=== PATIENT | female | born 2000 | race Caucasian/White ===

== ENCOUNTER 2020-02-14 12:21 | Outpatient (REF) | payer OTHER, SELFPAY ==
[2020-02-14 12:43] LABS: COVID-19 Test Negative (Negative)
== END 2020-02-14 12:22 | disposition home or self-care (01) ==
LOC: HO.LAB 12:21
PROVIDERS: PCP Nurse Practitioner Family; Visit Provider Internal Medicine
DX: Z20.828 Contact with and (suspected) exposure to other viral communicable diseases (principal)
CPT/HCPCS: 87635; C9803

== ENCOUNTER 2020-02-15 18:04 | Emergency (ER) | payer OTHER, SELFPAY ==
[2020-02-15 18:24] VITALS: BP 161/76; PULSE 100; RESP 20; TEMP 36.2; O2SAT 98; BMI 17.2
--- NOTE | 2020-02-15 18:52 | PC.NURSE ---
Pt has bed at [facility], spoke to staff. admisions number is [phone] who states pt was sent here and need insurance auth.
--- NOTE | 2020-02-15 20:11 | ED.GENADULT ---
HPI - General Adult General Chief complaint: ETOH/Substance Use Stated complaint: crisis Time Seen by Provider: 02/15/20 20:00 Source: patient Mode of arrival: ambulatory Limitations: no limitations History of Present Illness HPI narrative: Patient comes to the emergency room requesting help to be transferred to [facility]. Patient states she has been waiting for a month for a bed, she has a bed available, however due to insurance issues and prior authorization insurance request, she has not been able to get there. Patient's tests for COVID-19 was done yesterday, the result is negative. Patient denies SI or HI Related Data Allergies Allergy/AdvReac Type Severity Reaction Status Date / Time No Known Allergies Allergy Unverified 12/20/19 16:43 [No Known Allergies*] Review of Systems Review of Systems: Constitutional : No Weight loss, No Fever, No Chills, No Night Sweats, No Fatigue, No Malaise ENT/Mouth : No Hearing loss, No Ear Pain, No Nasal Congestion, No Sinus Pain, No Hoarseness, No sore throat, No Rhinorrhea, No Swallowing Difficulty Eyes: No Eye Pain, No Swelling, No Redness, No Foreign Body, No Discharge, No Vision Changes Cardiovascular : No Chest Pain, No SOB, No Dyspnea on Exertion, No Orthopnea, No Edema, No Palpitations Respiratory : No Cough, No Sputum, No Wheezing, No Smoke Exposure, No Dyspnea Gastrointestinal : No Nausea, No Vomiting, No Diarrhea, No Constipation, No abdominal Pain, No Hematochezia, No Melena Genitourinary : no irregular bleeding, No Dysuria, No Urinary Frequency, No Hematuria, No Urinary Incontinence, No Urgency, No Flank Pain, No Urinary Flow Changes, No Hesitancy Musculoskeletal : No joint pain, No Myalgias, No Joint Swelling Skin : No Skin Lesions, No rash Neuro : No Weakness, No Numbness, No Paresthesias, No Loss of Consciousness, No Dizziness, No Headache Psych : No Anxiety/Panic, No Depression, No SI/HI/AH/VH, No Social Issues, Heme/Lymph: No Bruising, No Bleeding,No Lymphadenopathy Endocrine : No Polyuria, No Polydipsia, No Temperature Intolerance [facility] Past Medical History Medical History (Updated 02/15/20 @ 21:40 by Kisha Montoya MD) Anorexia Anxiety Depression Eating disorder Social History Social History Alcohol intake: never Smoking Status: Never smoker Use of substances other than those prescribed or required for medical reasons: Yes Substance Use Type: Marijuana Substance Use Frequency: Daily Advance Directives: No Advance Directives Information Provided: Yes Physical Exam Vital Signs: Vital Signs: Last Vital Signs Temp 983 F H 02/15/20 20:12 Pulse 87 02/15/20 20:12 Resp 18 02/15/20 20:12 BP 140/75 H 02/15/20 20:12 Pulse Ox 97 02/15/20 20:12 Body Mass Index 17.2 Appearance: Alert. Oriented X3. No acute distress. Eyes: Pupils equal, round and reactive to light. ENT: Pharynx normal. Neck: Normal inspection. Neck supple. No lymph nodes noted. No crepitus CVS: Normal heart rate and rhythm. Pulses normal. Normal S1 and S2 Respiratory: No respiratory distress. Breath sounds normal. No Wheezing. No rales Abdomen: Soft and nontender. No rigidity. No distention. good BS x4 Skin: Skin warm and dry. Normal skin color. Normal skin turgor. Extremities: No lower extremity edema. No lower extremity edema. No Lacerations. No Rash Neuro: Oriented X 3. No motor deficit. No sensory deficit. Moving all extermities. No slurred speech. Course Course Course Narrative: Care team has been consulted, we will try to get the care team involved to help the transition to [facility]. The care team was consulted, they received the outpatient labs from the patient's PCP and our COVID negative test. They will call patient tomorrow at her house with a bed assignment. Discharge Plan Discharge Clinical Impression: Encounter for medical clearance for patient hold Patient Disposition: Home, Self-Care Additional Instructions: You will receive a phone call from [facility] tomorrow morning.
[2020-02-15 20:12] VITALS: BP 140/75; PULSE 87; RESP 18; TEMP 528.3; TEMP 983; O2SAT 97
--- NOTE | 2020-02-15 20:15 | MHC.CARE ---
CARE team received consult to assist with this patient in ED22H who reports she has been accepted to [facility] for eating disorder treatment. CARE team contacted [facility] [phone] at 2015 to clarify what is needed. [facility] staff reports patient was assessed earlier today by a clinician Pushpa Sparrow from their [place] [facility] office and was due to be admitted tonight. They were awaiting covid test, labs/medical clearance and insurance authorization. Due to the delay in obtaining authorization, it appears patient's mother was told it might be easier to go to the emergency room and have the team there evaluate her and get authorization, as well as completing medical clearance. CARE team explained that with patient's particular insurance it is the accepting facility that obtains the auth, and in addition an assessment would not be indicated as she was evaluated today and was already accepted to the facility. [facility] staff reports the supervisor ticket sales aJelyn Miranda is gone for the day, but that if patient is medically cleared at [facility] she can await her intake at home and does not need to remain in the ED. CARE team then updated nurse and requested labs. Presented to ED to talk to patient. Patient reports she completed labs including covid test yesterday. Denies any safety concerns including SI/HI/AVH. Patient reports she was supposed to be admitted tonight but that it is too late now. CARE team then spoke to patient's mother in the waiting room. She reports there was difficulty in obtaining authorization and the director of [facility] suggested coming to the ED. CARE team explained the above reasons why an eval would not be done, and explained conversation with [facility]. Mother reports the labs were sent to the facility already including covid test that was done at [facility]. CARE team is able to access and confirm the covid test but not the other labs from the PCP's office. CARE team updated patient and nurse on information so far and labs are on hold until further conversation with [facility]. CARE team called [facility] back at 2100 and updated on information above. Staff reviewed chart reached out to supervisor ticket sales for clarity. (They report their treatment facility is now in [place].) After consulting with supervisor ticket sales, [facility] staff reports patient can wait at home for admission appointment. CARE team faxed covid results to [facility] at [phone] with patient's permission. At 2140 updated patient, mother, and nurse on plan. No further labs needed per [facility] at this time.
--- NOTE | 2020-02-15 20:15 | PC.NURSE ---
patient a&ox3, pt here to get assistance for placement at [facility] for insurance clearance for her eating disorder, patient does not have si/hi.
--- NOTE | 2020-02-15 20:19 | PC.NURSE ---
called care team per request by dr caldwell, left a message as nobody answered the phone, will attempt to call [facility] to get ahold of them as well
--- NOTE | 2020-02-15 20:52 | PC.NURSE ---
reika from care team came to see patient, she stated to this nurse that there is an insurance auth already being worked on by the facility and that she does have a bed when auth goes through, they asked for labs for medical clearance with a covid/ekg, the patient is able to then wait at home for the auth and bed.
--- NOTE | 2020-02-15 21:02 | PC.NURSE ---
patient denies alcohol use, ciwa not applicable
--- NOTE | 2020-02-15 21:53 | PC.NURSE ---
care team has faxed all info that the facility had asked for, patient is going to discharge home and drive to facility when the bed is ready.
== END 2020-02-15 21:56 | disposition home or self-care (01) ==
PROVIDERS: Emergency Provider Emergency Medicine; PCP Nurse Practitioner Family
DX: Z04.89 Encounter for examination and observation for other specified reasons (principal); F10.10 Alcohol abuse, uncomplicated; Y90.9 Presence of alcohol in blood, level not specified
CPT/HCPCS: 99284

== ENCOUNTER 2020-04-21 07:07 | Outpatient (REF) | payer OTHER, SELFPAY | END 2020-04-21 07:08 | disposition home or self-care (01) | LOC: HO.LAB 07:07 | PROVIDERS: Visit Provider Internal Medicine | DX: Z20.822 Contact with and (suspected) exposure to COVID-19 (principal) | CPT/HCPCS: 36415; C9803; U0003 ==

== ENCOUNTER → 2022-03-05 07:11 | Outpatient (REF) | payer OTHER, SELFPAY ==
--- NOTE | 2022-03-05 07:16 | ECG_ITS ---
Test Reason : f50.00 Blood Pressure : / mmHG Vent. Rate : 070 BPM Atrial Rate : 070 BPM P-R Int : 170 ms QRS Dur : 084 ms QT Int : 412 ms P-R-T Axes : 053 093 066 degrees QTc Int : 444 ms Normal sinus rhythm Rightward axis Borderline ECG No previous ECGs available Referred By: Mireya Henao Electronically Signed By:Juan Hendricks
[2022-03-05 07:27] LABS: MANUAL DIFF FLAG NO
[2022-03-05 07:40] LABS: Basophils Absolute Auto 0.1 X10*3/uL (0.0-0.2); Basophils Percent Auto 1.1 % (0-2); Eosinophils Absolute Auto 0.2 X10*3/uL (0.0-0.4); Eosinophils Percent Auto 3.4 % (0-4); Hematocrit 39.5 % (37.0-47.0); Hemoglobin 12.8 g/dl (12.0-16.0); Imm Gran Abs Auto 0.01 X10*3/uL (0.00-0.03); Imm Gran Pct Auto 0.2 % (0.0-0.4); Lymphocytes Absolute Auto 1.4 X10*3/uL (1.2-4.9); Lymphocytes Percent Auto 30.1 % (20-40); Mean Corpuscular HGB Conc 32.4 g/dl (31.0-35.0); Mean Corpuscular Hemoglobin 27.8 pg (27.0-33.0); Mean Corpuscular Volume 85.9 fL (80.0-98.0); Mean Platelet Volume 11.4 fL (9.4-12.3); Monocytes Absolute Auto 0.6 X10*3/uL (0.1-1.2); Monocytes Percent Auto 13.8 % (2-11); Neutrophils Absolute Auto 2.4 x10*3/uL (2.0-8.3); Neutrophils Percent Auto 51.4 % (45-73); Platelet Count 200 X10*3/uL (160-400); Red Cell Distribution Width 13.3 % (11.0-16.0); White Blood Count 4.7 X10*3/uL (4.8-10.8)
[2022-03-05 08:25] LABS: Alanine Aminotransferase 6 U/L (0-31); Albumin Level 4.5 g/dL (3.5-5.0); Alkaline Phosphatase 67 U/L (39-117); Anion Gap 11 (12-20); Aspartate Amino Transferase 12 U/L (5-31); Bilirubin Total 0.8 mg/dL (0.0-1.0); Blood Urea Nitrogen 11 mg/dL (9-16); Calcium 9.8 mg/dL (8.4-10.2); Carbon Dioxide 26 mmol/L (22-29); Chloride 102 mmol/L (96-108); Estimated Glomerular Filt Rate > 60; Free T4 (Free Thyroxine) 1.13 ng/dL (0.71-1.85); Glucose Random 89 mg/dL (60-115); Potassium 3.8 mmol/L (3.3-5.1); Sodium 135 mmol/L (135-145); Thyroid Stimulating Hormone 0.66 uIU/mL (0.32-4.0); Total Protein 7.2 g/dL (6.5-8.0)
== END ==
LOC: HO.CARD 07:11
PROVIDERS: PCP Family Medicine; Visit Provider Nurse Practitioner Psychiatric/Mental Health
DX: F50.00 Anorexia nervosa, unspecified (principal)
CPT/HCPCS: 36415; 80053; 84439; 84443; 85025; 93005

== ENCOUNTER 2022-03-26 12:26 | Emergency (ER) | payer OTHER, SELFPAY ==
[2022-03-26 12:59] VITALS: BP 143/86; PULSE 66; RESP 18; TEMP 36.7; O2SAT 98; BMI 18.5
--- NOTE | 2022-03-26 13:00 | ED_ITS ---
HPI - General Adult General Chief complaint: Related Data 13:03> Stated complaint: Time Seen by Provider: Medication Instructions Recorded Source: patient <Tamara Perla MD - Last Filed: 03/26/22 17:46> Mode of arrival: release HPI narrative: shortness of breath, chest pain/palpitations or urinary symptoms. Patient also
--- NOTE | 2022-03-26 13:00 | ED.GENADULT ---
HPI - General Adult General Chief complaint: Nausea/Vomiting/Diarrhea <DANYEL Aguilar - Last Filed: 03/26/22 13:03> Stated complaint: Dehydrated <DANYEL Aguilar - Last Filed: 03/26/22 13:03> Time Seen by Provider: 03/26/22 14:40 <DANYEL Aguilar - Last Filed: 03/26/22 13:03> Source: patient <Tamara Perla MD - Last Filed: 03/26/22 17:46> Mode of arrival: ambulatory <Tamara Perla MD - Last Filed: 03/26/22 17:46> History of Present Illness HPI narrative: 21-year-old female who states nausea and vomiting since 04:00 but states that this typically happens due to her underlying eating disorder when she consumes alcohol which she did last night. She otherwise denies any fever, chills, shortness of breath, chest pain/palpitations or urinary symptoms. Patient also describes passive SI thoughts but denies any active plan or suicidal ideation. Patient states that she continues to take her medication as prescribed. <Tamara Perla MD - Last Filed: 03/26/22 17:46> Related Data Home medications: Previous Rx's Medication Instructions Recorded duloxetine 60 mg capsule,delayed 60 mg PO DAILY #14 caps 03/18/22 release olanzapine 7.5 mg tablet 7.5 mg PO BEDTIME #14 tabs 03/18/22 <DANYEL Aguilar - Last Filed: 03/26/22 13:03> Allergies/adverse reactions: Allergies Allergy/AdvReac Type Severity Reaction Status Date / Time No Known Allergies Allergy Unverified 12/20/19 16:43 [No Known Allergies*] <DANYEL Aguilar - Last Filed: 03/26/22 13:03> Review of Systems Review of Systems: Pertinent positives and negatives as stated in HPI 10 point review systems otherwise negative. <Tamara Perla MD - Last Filed: 03/26/22 17:46> PMFSH Past Medical History Source: nursing notes reviewed <Tamara Perla MD - Last Filed: 03/26/22 17:46> Medical History: Medical History Anorexia Anxiety Depression Eating disorder <DANYEL Aguilar - Last Filed: 03/26/22 13:03> Social History Social History: Social History Household Members: None Alcohol intake: never Smoked in Last 30 Days: Yes Use of substances other than those prescribed or required for medical reasons: No Substance Use Type: Marijuana Advance Directives: No Advance Directives Information Provided: No <DANYEL Aguilar - Last Filed: 03/26/22 13:03> Physical Exam ED Vital Signs: Vital Signs - 24 hr 03/26/22 12:59 03/26/22 14:59 03/26/22 16:09 Temperature 98.0 F 98.9 F Pulse Rate 66 70 68 Respiratory Rate 18 20 Blood Pressure 143/86 H 107/63 101/57 L Pulse Oximetry 98 97 96 Oxygen Delivery Method Room Air Room Air Room Air BMI result Body Mass Index 18.5 <DANYEL Aguilar - Last Filed: 03/26/22 13:03> Vital Signs - 24 hr 03/26/22 12:59 03/26/22 14:59 03/26/22 16:09 Temperature 98.0 F 98.9 F Pulse Rate 66 70 68 Respiratory Rate 18 20 Blood Pressure 143/86 H 107/63 101/57 L Pulse Oximetry 98 97 96 Oxygen Delivery Method Room Air Room Air Room Air BMI result Body Mass Index 18.5 VITAL SIGNS: Reviewed. GENERAL: Well developed, well nourished, in no acute distress. HEAD: Normocephalic/atraumatic EYES: PERRLA, EOMI EARS: Ext canals without abnormality OROPHARYNX: no oral lesions noted, posterior pharynx clear LUNGS: Normal breath sounds. No adventitious sounds or accessory muscle use. SpO2<96> CARDIOVASCULAR: Regular rate and rhythm without noted murmurs ABDOMEN: Soft, non-tender, non-distended with bowel sounds. MUSCULOSKELETAL: No tenderness, deformities, or effusions noted on gross inspection. EXTREMITIES: No cyanosis, clubbing or edema. SKIN: Inspection of the skin reveals no rashes NEUROLOGIC: Alert and oriented x 4. Strength and sensation to light touch were grossly intact x 4. <Tamara Perla MD - Last Filed: 03/26/22 17:46> Course Course Course Narrative: RME - 21 yo female with history of depression, anxiety, anorexa presents to the ER with acute onset of vomiting that started this morning at 4am. She also reports increase in suicidal ideation from a combination of the acute vomiting as well as other factors. No abd pain, diarrhea or fevers. No sick contacts. No hx cyclical vomiting. VSS on arrival. She engages in cutting behaviors at home, last was 1 week ago. No plan at this time. Will need to be medically cleared and then will need to be seen by the crisis team. <DANYEL Aguilar - Last Filed: 03/26/22 13:03> RME - 21 yo female with history of depression, anxiety, anorexa presents to the ER with acute onset of vomiting that started this morning at 4am. She also reports increase in suicidal ideation from a combination of the acute vomiting as well as other factors. No abd pain, diarrhea or fevers. No sick contacts. No hx cyclical vomiting. VSS on arrival. She engages in cutting behaviors at home, last was 1 week ago. No plan at this time. Will need to be medically cleared and then will need to be seen by the crisis team. Review of all investigations negative for acute findings, patient with reports of passive suicidal ideation and stating that she feels like she is at her baseline denies any plan and feels like she is safe for discharge to home. Patient reports that she consistently takes her medication, however though I do think that this patient is a safe discharge to home I have asked the care team to evaluate the patient as well as she is in a ?partial program?. In the meantime, patient received both Zofran and Compazine, this will be followed by Carafate and than gradual introduction of juice with saltine crackers with suspected discharge to home. <Tamara Perla MD - Last Filed: 03/26/22 17:46> Reevaluation(s) Reevaluation #1: On re-evaluation patient is feeling much better and is tolerating oral intake. Care team has evaluated the patient in feels that she has a safe discharge as she is already in partial. <Tamara Perla MD - Last Filed: 03/26/22 17:46> Time: 17:25 <Tamara Perla MD - Last Filed: 03/26/22 17:46> Medications Administered Discontinued Medications Generic Name Dose Route Start Last Admin Trade Name Freq PRN Reason Stop Dose Admin Ondansetron HCl 4 mg 03/26/22 14:58 03/26/22 15:04 Ondansetron Odt 4 Mg Tab.Rapdis TRANSLINGU 03/26/22 14:59 4 mg ONCE ONE Administration Prochlorperazine Maleate 5 mg 03/26/22 14:58 03/26/22 15:19 Prochlorperazine Maleate 5 Mg Tablet PO 03/26/22 14:59 5 mg ONCE ONE Administration Sucralfate 1 gm 03/26/22 16:42 03/26/22 17:10 Sucralfate Oral Suspension 1 Gm/10 Ml Oral.Susp PO 03/26/22 16:43 1 gm ONCE ONE Administration <DANYEL Aguilar - Last Filed: 03/26/22 13:03> Medications Administered Discontinued Medications Generic Name Dose Route Start Last Admin Trade Name Freq PRN Reason Stop Dose Admin Ondansetron HCl 4 mg 03/26/22 14:58 03/26/22 15:04 Ondansetron Odt 4 Mg Tab.Rapdis TRANSLINGU 03/26/22 14:59 4 mg ONCE ONE Administration Prochlorperazine Maleate 5 mg 03/26/22 14:58 03/26/22 15:19 Prochlorperazine Maleate 5 Mg Tablet PO 03/26/22 14:59 5 mg ONCE ONE Administration Sucralfate 1 gm 03/26/22 16:42 03/26/22 17:10 Sucralfate Oral Suspension 1 Gm/10 Ml Oral.Susp PO 03/26/22 16:43 1 gm ONCE ONE Administration <Tamara Perla MD - Last Filed: 03/26/22 17:46> Medical Decision Making Medical Decision Making MDM Narrative: 21-year-old female with history and clinical presentation suggestive of alcohol related nausea and vomiting. In addition, patient denies overt suicidal ideation with any plan and feels like she is at her baseline. <Tamara Perla MD - Last Filed: 03/26/22 17:46> Differential Diagnosis Differential Diagnoses: The differential diagnosis associated with the presentation includes <Tamara Perla MD - Last Filed: 03/26/22 17:46> , UTI, gastroenteritis <Tamara Perla MD - Last Filed: 03/26/22 17:46> Consult Healthcare Provider Management of the patient was discussed with: Educational Interpreter <Tamaar Perla MD - Last Filed: 03/26/22 17:46> Care team for screening. <Tamara Perla MD - Last Filed: 03/26/22 17:46> Lab Data MDM Lab Attestation statement: I reviewed the patient's lab results. <Tamara Perla MD - Last Filed: 03/26/22 17:46> Please see patient course for discussion regarding laboratory results. <Tamara Perla MD - Last Filed: 03/26/22 17:46> Result Diagrams: : 03/26/22 13:09 03/26/22 13:09 <DANYEL Aguilar - Last Filed: 03/26/22 13:03> Labs: Lab Results 03/26/22 03/26/22 03/26/22 Range/Units 13:09 13:09 13:09 WBC 12.6 H (4.8-10.8) X10*3/uL RBC 4.56 (4.20-5.50) X10*6/uL Hgb 12.6 (12.0-16.0) g/dl Hct 37.9 (37.0-47.0) % MCV 83.1 (80.0-98.0) fL MCH 27.6 (27.0-33.0) pg MCHC 33.2 (31.0-35.0) g/dl RDW 13.3 (11.0-16.0) % Plt Count 262 D (160-400) X10*3/uL MPV 10.7 (9.4-12.3) fL Immature Gran % (Auto) Cancelled Neut % (Auto) Cancelled Lymph % (Auto) Cancelled Linn % (Auto) Cancelled Eos % (Auto) Cancelled Baso % (Auto) Cancelled Lymph # (Auto) Cancelled Linn # (Auto) Cancelled Eos # (Auto) Cancelled Baso # (Auto) Cancelled Abs Immat Gran (auto) Cancelled Absolute Neuts (auto) Cancelled Absolute Nucleated RBC 0.000 (0.0-0.012) X10*3/uL Nucleated RBC % (auto) 0.0 (0.0-0.2) /100WBC Neutrophils % (Manual) 89 H (45-73) % Band Neutrophils % 3 (3-5) % Lymphocytes % (Manual) 5 L (20-40) % Monocytes % (Manual) 2 (2-11) % Eosinophils % (Manual) 1 (0-4) % Abs Neuts (Manual) 11.6 H (2.0-8.3) X10*3/uL Lymphocytes # (Manual) 0.6 L (1.2-4.9) X10*3/uL Monocytes # (Manual) 0.3 (0.1-1.2) X10*3/uL Eosinophils # (Manual) 0.1 (0.0-0.4) X10*3/uL Platelet Estimate NORMAL (NORMAL) Plt Morphology Comment NORMAL RBC Morphology NOTED Ovalocytes 1+ (5-14) /OIF Sodium 139 (135-145) mmol/L Potassium 4.0 (3.3-5.1) mmol/L Chloride 106 (96-108) mmol/L Carbon Dioxide 22 (22-29) mmol/L Anion Gap 15 (12-20) BUN 7 L (9-16) mg/dL Creatinine 0.75 (0.5-1.4) mg/dL Estim Creat Clear Calc 90.2 Estimated GFR > 60 Random Glucose 124 H (60-115) mg/dL Calcium 9.9 (8.4-10.2) mg/dL Magnesium 1.9 (1.6-2.6) mg/dL Total Bilirubin 0.5 (0.0-1.0) mg/dL Direct Bilirubin 0.2 (0.0-0.5) mg/dL AST 18 (5-31) U/L ALT 7 (0-31) U/L Alkaline Phosphatase 73 (39-117) U/L Total Protein 7.5 (6.5-8.0) g/dL Albumin 4.7 (3.5-5.0) g/dL Ethyl Alcohol < 10 mg/dL Influenza Type A (PCR) NEGATIVE (Negative) Influenza Type B (PCR) NEGATIVE (Negative) RSV RNA Qual (PCR) NEGATIVE (Negative) SARS-CoV-2 RNA (RT-PCR) NEGATIVE (Negative) <DANYEL Aguilar - Last Filed: 03/26/22 13:03> Lab Results 03/26/22 03/26/22 03/26/22 Range/Units 13:09 13:09 13:09 WBC 12.6 H (4.8-10.8) X10*3/uL RBC 4.56 (4.20-5.50) X10*6/uL Hgb 12.6 (12.0-16.0) g/dl Hct 37.9 (37.0-47.0) % MCV 83.1 (80.0-98.0) fL MCH 27.6 (27.0-33.0) pg MCHC 33.2 (31.0-35.0) g/dl RDW 13.3 (11.0-16.0) % Plt Count 262 D (160-400) X10*3/uL MPV 10.7 (9.4-12.3) fL Immature Gran % (Auto) Cancelled Neut % (Auto) Cancelled Lymph % (Auto) Cancelled Linn % (Auto) Cancelled Eos % (Auto) Cancelled Baso % (Auto) Cancelled Lymph # (Auto) Cancelled Linn # (Auto) Cancelled Eos # (Auto) Cancelled Baso # (Auto) Cancelled Abs Immat Gran (auto) Cancelled Absolute Neuts (auto) Cancelled Absolute Nucleated RBC 0.000 (0.0-0.012) X10*3/uL Nucleated RBC % (auto) 0.0 (0.0-0.2) /100WBC Neutrophils % (Manual) 89 H (45-73) % Band Neutrophils % 3 (3-5) % Lymphocytes % (Manual) 5 L (20-40) % Monocytes % (Manual) 2 (2-11) % Eosinophils % (Manual) 1 (0-4) % Abs Neuts (Manual) 11.6 H (2.0-8.3) X10*3/uL Lymphocytes # (Manual) 0.6 L (1.2-4.9) X10*3/uL Monocytes # (Manual) 0.3 (0.1-1.2) X10*3/uL Eosinophils # (Manual) 0.1 (0.0-0.4) X10*3/uL Platelet Estimate NORMAL (NORMAL) Plt Morphology Comment NORMAL RBC Morphology NOTED Ovalocytes 1+ (5-14) /OIF Sodium 139 (135-145) mmol/L Potassium 4.0 (3.3-5.1) mmol/L Chloride 106 (96-108) mmol/L Carbon Dioxide 22 (22-29) mmol/L Anion Gap 15 (12-20) BUN 7 L (9-16) mg/dL Creatinine 0.75 (0.5-1.4) mg/dL Estim Creat Clear Calc 90.2 Estimated GFR > 60 Random Glucose 124 H (60-115) mg/dL Calcium 9.9 (8.4-10.2) mg/dL Magnesium 1.9 (1.6-2.6) mg/dL Total Bilirubin 0.5 (0.0-1.0) mg/dL Direct Bilirubin 0.2 (0.0-0.5) mg/dL AST 18 (5-31) U/L ALT 7 (0-31) U/L Alkaline Phosphatase 73 (39-117) U/L Total Protein 7.5 (6.5-8.0) g/dL Albumin 4.7 (3.5-5.0) g/dL Ethyl Alcohol < 10 mg/dL Influenza Type A (PCR) NEGATIVE (Negative) Influenza Type B (PCR) NEGATIVE (Negative) RSV RNA Qual (PCR) NEGATIVE (Negative) SARS-CoV-2 RNA (RT-PCR) NEGATIVE (Negative) <Tamara Perla MD - Last Filed: 03/26/22 17:46> Discharge Plan Discharge Clinical Impression: Alcohol use, Nausea and vomiting <DANYEL Aguilar - Last Filed: 03/26/22 13:03> Patient Disposition: Home, Self-Care <DANYEL Aguilar - Last Filed: 03/26/22 13:03> Instructions: Acute Nausea and Vomiting (ED) <DANYEL Aguilar - Last Filed: 03/26/22 13:03> Additional Instructions: 1. Resume all home medications as prescribed. 2. Please follow-up with primary care provider as well as your therapist in next 3-4 days. Return to the ER for worsening symptoms. <DANYEL Aguilar - Last Filed: 03/26/22 13:03> Prescriptions: No Action olanzapine 7.5 mg tablet 7.5 mg PO BEDTIME Qty: 14 0RF duloxetine 60 mg capsule,delayed release(DR/EC) 60 mg PO DAILY Qty: 14 0RF <DANYEL Aguilar - Last Filed: 03/26/22 13:03> Referrals: Any Perez MD [Primary Care Provider] - <DANYEL Aguilar - Last Filed: 03/26/22 13:03>
[2022-03-26 13:20] LABS: Hematocrit 37.9 % (37.0-47.0); Hemoglobin 12.6 g/dl (12.0-16.0); Mean Corpuscular HGB Conc 33.2 g/dl (31.0-35.0); Mean Corpuscular Hemoglobin 27.6 pg (27.0-33.0); Mean Corpuscular Volume 83.1 fL (80.0-98.0); Mean Platelet Volume 10.7 fL (9.4-12.3); Platelet Count 262 X10*3/uL (160-400); Red Blood Count 4.56 X10*6/uL (4.20-5.50); Red Cell Distribution Width 13.3 % (11.0-16.0)
[2022-03-26 13:26] LABS: WBC ABN SCTR FOR CBC 1
[2022-03-26 13:44] LABS: Band Neutrophils Percent 3 % (3-5); Eosinophils Percent Manual 1 % (0-4); Lymphocytes Percent Manual 5 % (20-40); Monocytes Percent Manual 2 % (2-11); Neutrophils Percent Manual 89 % (45-73)
[2022-03-26 13:45] LABS: Ovalocytes 1+ (5-14) /OIF; Platelet Estimate NORMAL (NORMAL); Platelet Morphology Comment NORMAL; RBC Morphology NOTED
[2022-03-26 13:46] LABS: Eosinophils Absolute Manual 0.1 X10*3/uL (0.0-0.4); Lymphocytes Absolute Manual 0.6 X10*3/uL (1.2-4.9); Monocytes Absolute Manual 0.3 X10*3/uL (0.1-1.2); Neutrophils Absolute Manual 11.6 X10*3/uL (2.0-8.3); White Blood Count 12.6 X10*3/uL (4.8-10.8)
[2022-03-26 14:01] LABS: Influenza A PCR NEGATIVE (Negative); Influenza B PCR NEGATIVE (Negative); Resp Syncy Virus RNA Qual PCR NEGATIVE (Negative); SARS COV2 PCR INHOUSE NEGATIVE (Negative)
[2022-03-26 14:03] LABS: Alanine Aminotransferase 7 U/L (0-31); Albumin Level 4.7 g/dL (3.5-5.0); Alkaline Phosphatase 73 U/L (39-117); Anion Gap 15 (12-20); Aspartate Amino Transferase 18 U/L (5-31); Bilirubin Direct 0.2 mg/dL (0.0-0.5); Bilirubin Total 0.5 mg/dL (0.0-1.0); Blood Urea Nitrogen 7 mg/dL (9-16); Calcium 9.9 mg/dL (8.4-10.2); Carbon Dioxide 22 mmol/L (22-29); Chloride 106 mmol/L (96-108); Creatinine Clr Calc Pharmacy 90.2; Estimated Glomerular Filt Rate > 60; Ethanol < 10 mg/dL; Glucose Random 124 mg/dL (60-115); Magnesium 1.9 mg/dL (1.6-2.6); Sodium 139 mmol/L (135-145); Total Protein 7.5 g/dL (6.5-8.0)
[2022-03-26 14:59] VITALS: BP 107/63; PULSE 70; RESP 20; O2SAT 97
[2022-03-26] MEDS: Ondansetron ODT 4 MG TAB.RAPDIS TRANSLINGU (15:04)
[2022-03-26] MEDS: Prochlorperazine Maleate 5 MG TABLET PO (15:19)
[2022-03-26 16:09] VITALS: BP 101/57; PULSE 68; TEMP 37.2; O2SAT 96
[2022-03-26] MEDS: Sucralfate Oral Suspension 1 GM/10 ML ORAL.SUSP PO (17:10)
--- NOTE | 2022-03-26 17:11 | PC.NURSE ---
patient able to tolerate 2 packets of saltine crackers. has not vomited in ED. continues to report nausea. medicated per orders.
--- NOTE | 2022-03-26 17:28 | PC.NURSE ---
CARE team at bedside
== END 2022-03-26 18:00 | disposition home or self-care (01) ==
PROVIDERS: Physician Assistant; Emergency Provider Student in an Organized Health Care Education/Training Program; PCP Family Medicine
DX: E86.0 Dehydration (principal); R11.2 Nausea with vomiting, unspecified; F10.90 Alcohol use, unspecified, uncomplicated; Y90.0 Blood alcohol level of less than 20 mg/100 ml; Z20.822 Contact with and (suspected) exposure to COVID-19; Z79.899 Other long term (current) drug therapy
CPT/HCPCS: 0241U; 80048; 80076; 82077; 83735; 85007; 85027; 99284

== ENCOUNTER 2022-04-09 09:45 | Outpatient (RCR) | payer OTHER, SELFPAY ==
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
[2022-03-04 12:34] VITALS: BP 110/68; PULSE 68; TEMP 37.3
[2022-03-04 13:46] LABS: Amphetamine Screen Urine Not Detected (Not Detect); Barbiturates, Urine Not Detected (Not Detect); Benzodiazepines Screen Urine Not Detected (Not Detect); Cannabinoid Screen Urine POSITIVE (Not Detect); Cocaine Screen Urine Not Detected (Not Detect); Fentanyl, urine Not Detected (Not Detect); Opiate Screen Urine Not Detected (Not Detect); Phencyclidine Screen Urine Not Detected (Not Detect)
--- NOTE | 2022-03-04 14:50 | HO.PHPIOP ---
Case opened in treatment team.
[2022-03-04 15:33] VITALS: BMI 19.5
--- NOTE | 2022-03-08 15:57 | HO.PHPIOP ---
I met with pt to discuss aftercare, schedule, and reviewed treatment plan.
--- NOTE | 2022-03-10 13:44 | P.PNPSP_ITS ---
Subjective Subjective Date of Service: 03/10/22 Reason For Visit: depression,anxiety Medical Problems Affecting Mental Status: No Interim History: Describes mood as 'not so great . Increased depression, urges to self harm. Passive SI, no intent/plan, says feels safe. Struggling to eat, not following anorexia meal plan. Continues using cannabis frequently. Started the olanzapine and duloxetine Tuesday evening. Medication Compliance: Intermittent Side effects from medications: No Attending Groups: Yes Review of Systems Acute medical concerns: No Medical Review of Systems: unchanged Review of Systems Review of Systems Yes all other systems are reviewed and are negative Constitutional: Reports no additional constitutional complaints Mental Status Exam Mental Status Exam Narrative: NAD Patient Appearance: Well Grooomed and Appropriate Patient Orientation: Person, Place and Situation Level of Consciousness: Appropriate and Alert Patient Behavior: Appropriate, Cooperative and Good Eye Contact Mood Description: Depressed Affect Description: Depressed Patient Cognition Impaired: No Ability to Follow Directions: Excellent Speech Pattern: Clear Memory Description: Intact Hallucinations: None Delusions: Not Present Thought Process: Intact Thought Content: positive for Obsessional Thoughts (urges to self harm, SIB) and positive for Suicidal Ideation (Passive, no intent or plan.) Depressive Symptoms: Increased Anxiety, Difficulty Sleeping, Changes in Appetite (decreased), Crying Spells, Loss of Int. in Activity, Hopelessness, Isolating- Friends/Family, Unhappiness, Increased Fatigue, Thoughts of /Suicide, Low Self Esteem, Loss of Energy and Difficulty Concentrating Judgement: Fair Diagnostics Vital Signs (24Hr): BMI result Body Mass Index 19.5 Assessment & Plan Assessment & Plan (1) Major depressive disorder, recurrent severe without psychotic features: Status: Acute Code(s): F33.2 - Major depressive disorder, recurrent severe without psychotic features Assessment and Plan: Describes mood as 'not so great . Ate lunch today in her car, watching TV on her phone. States that she has been experiencing increased symptoms of depression. Increased depression, urges to self harm. Continues with depressive symptoms, anhedonia, feeling hopeless helpless, poor concentration, difficulty with sleep, struggling. Reviewed recent lab work and EKG results, no concerns. Passive SI, no intent/plan, says feels safe. Reviewed safety plan with patient. Struggling to eat, not following anorexia meal plan. Discussed possibility of calling [facility] if symptoms of anorexia continue to worsen. She was in agreement with this plan. Continues using cannabis frequently. Has not lowered amount. Started the olanzapine and duloxetine Tuesday evening. Has not yet noticed affect. Medication education provided, discussed increasing olanzapine at this time, and duloxetine after she has completed 7 day course of lower dose. She was in agreement with this plan. (2) Anorexia nervosa: Status: Acute Code(s): F50.00 - Anorexia nervosa, unspecified (3) Generalized anxiety disorder: Status: Acute Code(s): F41.1 - Generalized anxiety disorder (4) Cannabis abuse: Status: Acute Code(s): F12.10 - Cannabis abuse, uncomplicated Plan 1. Continue with current [facility] plan of care. 2. Increase olanzapine to 5 mg at bedtime, start today. 3. Harm reduction discussion regarding cannabis. 4. Increase duloxetine to 60 mg daily, after completion of 7 days at 30 mg. 5. Follow-up as per protocol. Patient educated on: diagnosis, medication risk/benefits, substance abuse and therapeutic strategies Informed Consent: understands Reason for contiued partial hosp. stay Substantial Risk for: harm to self, inability to function, rapid decompensation and med/psych decompensation Certification I certify that partial hospital treatment is medically necessary due to the symptoms and problems resulting from the patient's mental illness and the failure to treat the patient at the partial hospital level of care would likely result in the patient requiring inpatient psychiatric care which could not be prevented at a less intensive level of care. I spent minutes with the patient and/or on the patient floor today, greater than?50% of which was spent counseling/coordinating care. Discharge Plan Discharge Attending provider: Chetan Hsieh Medications: New olanzapine 5 mg tablet 5 mg PO BEDTIME Qty: 7 0RF duloxetine 60 mg capsule,delayed release(DR/EC) 60 mg PO DAILY Qty: 7 0RF Rx Instructions: After completion of duloxetine 30mg for 7 days, start duloxetine 60mg daily
--- NOTE | 2022-03-18 12:48 | HO.PHPPROGNO ---
Subjective Subjective Date of Service: 03/18/22 Reason For Visit: depression,anxiety Medical Problems Affecting Mental Status: No Interim History: Reports that she was doing better regarding depression, anxiety. States that recently symptoms have worsened again. Reports increase in intrusive thoughts, passive SI. No intent or plan. Trying to eat every 2 hours. Trying to eat protein, carbs for energy. Continues to struggle with both depression and eating disorder. Medication Compliance: Yes Side effects from medications: No Attending Groups: Yes Review of Systems Acute medical concerns: No Medical Review of Systems: unchanged Review of Systems Review of Systems Yes all other systems are reviewed and are negative Constitutional: Reports no additional constitutional complaints Mental Status Exam Mental Status Exam Narrative: NAD Patient Appearance: Well Grooomed and Appropriate Patient Orientation: Person, Place, Time and Situation Level of Consciousness: Appropriate and Alert Patient Behavior: Appropriate, Cooperative and Good Eye Contact Mood Description: Depressed Affect Description: Depressed Patient Cognition Impaired: No Ability to Follow Directions: Excellent Speech Pattern: Clear, Appropriate and Spontaneous Speech Memory Description: Intact Hallucinations: None Delusions: Not Present Thought Process: Intact Thought Content: positive for Obsessional Thoughts (urges to self harm, SIB) and positive for Suicidal Ideation (Passive, no intent or plan.) Depressive Symptoms: Increased Anxiety, Difficulty Sleeping, Changes in Appetite (decreased), Crying Spells, Loss of Int. in Activity, Hopelessness, Isolating-Friends/Family, Unhappiness, Increased Fatigue, Thoughts of /Suicide, Low Self Esteem, Loss of Energy and Difficulty Concentrating Judgement: Fair Diagnostics Vital Signs (24Hr): BMI result Body Mass Index 19.5 Assessment & Plan Assessment & Plan (1) Major depressive disorder, recurrent severe without psychotic features: Status: Acute Code(s): F33.2 - Major depressive disorder, recurrent severe without psychotic features Assessment and Plan: Reports that she was doing better regarding depression, anxiety. States that recently symptoms have worsened again. Reports that thought of returning to work on busy unit is causing distress, feeling hopeless helpless at times. Patient has short-term disability paperwork that needs updating. Reports increase in intrusive thoughts, passive SI. No intent or plan. Trying to eat every 2 hours. Trying to eat protein, carbs for energy. Eating only small amounts. Describes taking piece of toast with peanut butter for the morning, several bites of a month in later in the morning. Continues to struggle with both depression and eating disorder. Feels as if she has gone backwards rather than improving. We discussed the intrusive thoughts, increase of olanzapine to 7.5 mg. She is in agreement with this plan. (2) Generalized anxiety disorder: Status: Acute Code(s): F41.1 - Generalized anxiety disorder (3) Anorexia nervosa: Status: Acute Code(s): F50.00 - Anorexia nervosa, unspecified Plan 1. Increase olanzapine to 7.5 mg daily. Prescription for 14 days sent to pharmacy. 2. Continue duloxetine at 60 mg daily. 3. Continue with current [facility] plan of care. 4. Follow-up as per protocol. 5. Short-term disability paperwork completed. Reason for contiued partial hosp. stay Substantial Risk for: harm to self, inability to function and rapid decompensation Certification I certify that partial hospital treatment is medically necessary due to the symptoms and problems resulting from the patient's mental illness and the failure to treat the patient at the partial hospital level of care would likely result in the patient requiring inpatient psychiatric care which could not be prevented at a less intensive level of care. Total time managing care of this patient today ___30_ minutes. Discharge Plan Discharge Attending provider: Chetan Hsieh Medications: New duloxetine 60 mg capsule,delayed release(DR/EC) 60 mg PO DAILY Qty: 7 0RF Rx Instructions: After completion of duloxetine 30mg for 7 days, start duloxetine 60mg daily olanzapine 7.5 mg tablet 7.5 mg PO BEDTIME Qty: 14 0RF
--- NOTE | 2022-03-30 13:28 | HO.PHPPROGNO ---
Subjective Subjective Date of Service: 03/30/22 Reason For Visit: depression,anxiety Medical Problems Affecting Mental Status: No Interim History: Continues with depressed mood an affect. Reports wrote suicide letters and videos over weekend. Reports self-injury behavior over weekend, ?I cut myself with a razor at my parents house ?. Despite having plan, reports that she has no intent at this time. Continues with disordered eating, limited intake. Medication Compliance: Yes Side effects from medications: No Attending Groups: Yes Review of Systems Acute medical concerns: No Medical Review of Systems: unchanged Review of Systems Review of Systems Yes all other systems are reviewed and are negative Constitutional: Reports no additional constitutional complaints Mental Status Exam Mental Status Exam Narrative: NAD Patient Appearance: Well Grooomed and Appropriate Patient Orientation: Person, Place, Time and Situation Level of Consciousness: Appropriate and Alert Patient Behavior: Appropriate, Cooperative and Good Eye Contact Mood Description: Depressed Affect Description: Depressed and Flat Patient Cognition Impaired: No Ability to Follow Directions: Good Speech Pattern: Clear, Appropriate and Spontaneous Speech Memory Description: Intact Hallucinations: None Delusions: Not Present Thought Process: Intact Thought Content: positive for Obsessional Thoughts (urges to self harm, SIB) and positive for Suicidal Ideation (has plan, states no intent at this time) Depressive Symptoms: Increased Anxiety, Difficulty Sleeping, Changes in Appetite (decreased), Crying Spells, Loss of Int. in Activity, Hopelessness, Isolating-Friends/Family, Unhappiness, Increased Fatigue, Thoughts of /Suicide, Low Self Esteem, Loss of Energy and Difficulty Concentrating Judgement: Fair Diagnostics Vital Signs (24Hr): BMI result Body Mass Index 19.5 Assessment & Plan Assessment & Plan (1) Major depressive disorder, recurrent severe without psychotic features: Status: Acute Code(s): F33.2 - Major depressive disorder, recurrent severe without psychotic features Assessment and Plan: Patient continues to struggle with depression, anorexia. Wrote out suicide notes and made videos over weekend. Self harmed with razor. Reports has a plan for suicide completion, but no intent today. Reviewed safety plan, phone number for crisis provided to patient. Patient has been meeting with her therapist to times weekly. Finding groups here helpful, however continues to struggle. Does not feel ready for discharge. Discussed obtaining crisis eval for possible inpatient level of care. She would prefer medication changes if possible rather than going inpatient at this time. (2) Anorexia nervosa: Status: Acute Code(s): F50.00 - Anorexia nervosa, unspecified (3) Generalized anxiety disorder: Status: Acute Code(s): F41.1 - Generalized anxiety disorder (4) Cannabis abuse: Status: Acute Code(s): F12.10 - Cannabis abuse, uncomplicated Assessment and Plan: Patient continues to struggle with substance use. Plan 1. Continue with current [facility] plan of care. 2. Follow-up as per protocol. 3. Consider raising olanzapine and duloxetine doses. Patient educated on: diagnosis, medication risk/benefits, substance abuse and therapeutic strategies Informed Consent: understands Reason for contiued partial hosp. stay Substantial Risk for: harm to self, inability to function, rapid decompensation and med/psych decompensation Certification I certify that partial hospital treatment is medically necessary due to the symptoms and problems resulting from the patient's mental illness and the failure to treat the patient at the partial hospital level of care would likely result in the patient requiring inpatient psychiatric care which could not be prevented at a less intensive level of care. Total time managing care of this patient today ___25_ minutes. Discharge Plan Discharge Attending provider: Chetan Hsieh Medications: New olanzapine 7.5 mg tablet 7.5 mg PO BEDTIME Qty: 14 0RF duloxetine 60 mg capsule,delayed release(DR/EC) 60 mg PO DAILY Qty: 14 0RF No Action ondansetron 4 mg tablet,disintegrating 4 mg PO Q8H PRN (Reason: nausea and vomiting) Qty: 7 0RF Stand Alone Forms: Patient Portal Discharge page Patient Education: Depression (DC), Cannabis Abuse (DC), Anxiety (ED)
--- NOTE | 2022-04-08 11:28 | HO.PHPPROGNO ---
Subjective Subjective Date of Service: 04/08/22 Reason For Visit: depression,anxiety Medical Problems Affecting Mental Status: No Interim History: Continues with depressed mood, although some improvement. Tolerating increased olanzapine well. Did not take the increased duloxetine, state at 60 mg. No active SI, no safety concerns. Continues with cannabis use, although decreased. Has intake for [facility] tomorrow, would like to return to residential tx for eating disorder. Resigned from work position, accepted a position in a role with less stress. Feels stable, ready for discharge. Medication Compliance: Intermittent (Did not take increased duloxetine dose. ) Side effects from medications: No Attending Groups: Yes Review of Systems Acute medical concerns: No Medical Review of Systems: unchanged Review of Systems Review of Systems Yes all other systems are reviewed and are negative Constitutional: Reports no additional constitutional complaints Mental Status Exam Mental Status Exam Narrative: NAD Patient Appearance: Well Grooomed and Appropriate Patient Orientation: Person, Place, Time and Situation Level of Consciousness: Appropriate and Alert Patient Behavior: Appropriate, Cooperative and Good Eye Contact Mood Description: Appropriate and Depressed Affect Description: Appropriate and Depressed Patient Cognition Impaired: No Ability to Follow Directions: Good Speech Pattern: Clear and Spontaneous Speech Memory Description: Intact Hallucinations: None Delusions: Not Present Thought Process: Intact Depressive Symptoms: Diff. Making Decisions, Loss of Int. in Activity, Low Self Esteem and Difficulty Concentrating Judgement: Good Diagnostics Vital Signs (24Hr): BMI result Body Mass Index 19.5 Assessment & Plan Assessment & Plan (1) Major depressive disorder, recurrent severe without psychotic features: Status: Acute Code(s): F33.2 - Major depressive disorder, recurrent severe without psychotic features Assessment and Plan: Continues with depressed mood, although reports some improvement. Reports did not pecan picker increased dose duloxetine, due to financial concerns. Has resigned from work, and new position does not start for 5 to 6 weeks. New position is much less stressful. Continues with disordered eating, has intake scheduled for [facility]. Wants to resume residential treatment with them, had been in treatment with them in August 2021. No SI, no safety concerns. Reports feels stable for discharge from [facility] at this time. (2) Cannabis abuse: Status: Acute Code(s): F12.10 - Cannabis abuse, uncomplicated Assessment and Plan: continues use of cannabis, although reports using less amount, less frequency. Hopes to address this further in outpatient setting. (3) Generalized anxiety disorder: Status: Acute Code(s): F41.1 - Generalized anxiety disorder (4) Anorexia nervosa: Status: Acute Code(s): F50.00 - Anorexia nervosa, unspecified Plan 1. Appears stable for discharge from [facility] at this time. 2. Patient to continue with outpatient providers, as well as [facility], going forward. Patient educated on: diagnosis, medication risk/benefits, substance abuse and therapeutic strategies Informed Consent: understands Reason for contiued partial hosp. stay Substantial Risk for: stable for discharge Certification I certify that partial hospital treatment is medically necessary due to the symptoms and problems resulting from the patient's mental illness and the failure to treat the patient at the partial hospital level of care would likely result in the patient requiring inpatient psychiatric care which could not be prevented at a less intensive level of care. Total time managing care of this patient today _20___ minutes. Discharge Plan Discharge Attending provider: Chetan Hsieh Medications: New duloxetine 60 mg capsule,delayed release(DR/EC) 60 mg PO DAILY Qty: 30 0RF duloxetine 30 mg capsule,delayed release(DR/EC) 30 mg PO DAILY Qty: 30 0RF Rx Instructions: Take with duloxetine 60mg daily, for total daily dose 90mg daily olanzapine 10 mg tablet 10 mg PO BEDTIME Qty: 30 0RF No Action ondansetron 4 mg tablet,disintegrating 4 mg PO Q8H PRN (Reason: nausea and vomiting) Qty: 7 0RF Stand Alone Forms: Patient Portal Discharge page Patient Education: Depression (DC), Cannabis Abuse (DC), Anxiety (ED)
== END 2022-04-09 23:59 | disposition home or self-care (01) ==
LOC: HO.PHPA 09:45
PROVIDERS: Nurse Practitioner Psychiatric/Mental Health; Visit Provider Psychiatry & Neurology Psychiatry
DX: F33.2 Major depressive disorder, recurrent severe without psychotic features (principal); F41.1 Generalized anxiety disorder; F50.00 Anorexia nervosa, unspecified; Z79.899 Other long term (current) drug therapy
CPT/HCPCS: 80307; 90791; 90853

== ENCOUNTER → 2023-03-08 09:00 | Outpatient (BNV) | payer OTHER, SELFPAY | PROVIDERS: Visit Provider Psychiatry & Neurology Psychiatry | DX: F33.2 Major depressive disorder, recurrent severe without psychotic features (principal); F43.10 Post-traumatic stress disorder, unspecified; F42.8 Other obsessive-compulsive disorder; F50.9 Eating disorder, unspecified; F12.10 Cannabis abuse, uncomplicated | CPT/HCPCS: 90792; 99213; 99499 ==

== ENCOUNTER 2023-03-21 09:30 | Outpatient (RCR) | payer OTHER, SELFPAY ==
[2023-03-02 11:43] VITALS: BP 120/84; PULSE 62; TEMP 37.4
[2023-03-02 11:45] VITALS: BMI 20.2
--- NOTE | 2023-03-02 12:38 | PC.ADMIT ---
Clarissa is a 22 year old female who was referred to PHP by her therapist d/t increased sxs of depression with passive SI, reports plan however denied any intention of killing herself as her family, three best friends, and dog are her protective factors. Denied any history of SA. She has a history of attending PHP around the same time last year February 2022. She is also struggling with increased anxiety. She reports she struggles with seasonal changes and the holidays which are focused on food and eating which is challenging with her eating disorder. She is currently working second shift 3-11 at [employer]. Patient is alert and oriented x4. Calm and cooperative. Presented with anxious mood and affect. She stated she took her prescribed prn Klonopin this morning d/t anxiety with good effect. She also reports she has not been taking her medication as prescribed for the past 2 weeks d/t nausea and at times vomiting thus can not hold down the medication. 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 Medications reconciled with patient and patient's pharmacy.
--- NOTE | 2023-03-02 13:03 | PC.NURSE ---
Clarissa called out on 03/01/23 leaving a message stating she was too tired to come to [facility] as she worked 3-11 last night and will be here tomorrow 03/02/23.
--- NOTE | 2023-03-02 14:32 | PC.NURSE ---
Patient stated that she has to do a 1/2 day at [facility] tomorrow as she has no one to watch her dog and has a therapy appointment.
--- NOTE | 2023-03-03 18:48 | HO.PHP ---
[facility] staff member followed up with Clarissa to confirm that she will be in attendance to program. PHP staff member left a VM and is awaiting a call back.
--- NOTE | 2023-03-03 18:51 | HO.PHP ---
Clients case has been opened and reviewed in treatment team.
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
--- NOTE | 2023-03-08 19:38 | HO.PHPPROGNO ---
Subjective Subjective Date of Service: 03/08/23 Reason For Visit: MDD Interim History: Patient seen for follow-up today. No acute concerns or issues. She reports she is doing okay. She reports her mood is about the same, no change. She endorses some passive SI, but denies any plan or intent. I asked if she has moved up to one tablet now of the Latuda, however she says she has not had a chance to orange picker the medication, but is aware it's ready and will pick it up today and start. SHe is aware to take the medication with evening meal for optimal absorption. She did stop taking the olanzapine since we last met. She is now day 5 off of olanzapine without having started on the Latuda. I share my concern that her mood may worsen before it gets better with starting the Latuda. She says she understands and will prioritize starting today. She had also been off of the fluoxetine and we agreed to she would start back at 20 mg qd. She reports sleeping variable, appetite fair, eating regularly at least 2 meals. Energy stable. She continues with regular marijuana use. She last used over the weekend. Medication Compliance: No (as noted above) Attending Groups: Yes Review of Systems Acute medical concerns: No Mental Status Exam Mental Status Exam Narrative: Alert, oriented, in no acute distress. Appropriately dressed. Hygiene, grooming intact. Normal gait, no tics/tremors/dyskinesia, no psychomotor agitation or neurovegetative retardation. Calm, cooperative, forthcoming. Maintains appropriate eye contact. Mood is depressed, anxious. Affect subdued, mod range, reactive,moments of brightening, mood congruent.? Speech is normal, regular rate, rhythm, prosody. No latency or pressured speech. Thought process linear, coherent. Thought content relevant to stressors, no paranoid or delusional content elicited, some future-orientation. Denies SI or HI on inquiry. No evidence of psychosis. Cognition grossly intact. Sensorium clear. Insight fair/good. Judgment intact. Diagnostics Vital Signs (24Hr): BMI result Body Mass Index 20.2 Assessment & Plan Assessment & Plan (1) Major depressive disorder, recurrent severe without psychotic features: Status: Acute Code(s): F33.2 - Major depressive disorder, recurrent severe without psychotic features (2) Complex posttraumatic stress disorder: Status: Acute Code(s): F43.10 - Post-traumatic stress disorder, unspecified (3) Obsessive neurosis: Status: Acute Code(s): F42.8 - Other obsessive-compulsive disorder (4) Eating disorder: Qualifiers: Eating disorder type: unspecified eating disorder Qualified Code(s): F50.9 - Eating disorder, unspecified Status: Acute Code(s): F50.9 - Eating disorder, unspecified Plan urged patient to orange picker medication (ordered 03/03) Latuda 20 mg tab (start 1/2 tablet qd x 4 days then increase to 1 tablet qd) will titrate as tolerated if further delay, she should start back on olanzapine in the interim continue fluoxetine 20 mg qd continue to monitor Patient educated on: diagnosis and medication risk/benefits Informed Consent: understands Reason for contiued partial hosp. stay Substantial Risk for: harm to self Certification I certify that partial hospital treatment is medically necessary due to the symptoms and problems resulting from the patient's mental illness and the failure to treat the patient at the partial hospital level of care would likely result in the patient requiring inpatient psychiatric care which could not be prevented at a less intensive level of care. Total time managing care of this patient today __30__ minutes. Discharge Plan Discharge Attending provider: Amber Benjamin Medications: New lurasidone 20 mg tablet 20 mg PO QPM Qty: 14 0RF Rx Instructions: must administer with food (at least 350 calories) Continued ondansetron 4 mg tablet,disintegrating 4 mg PO Q8H PRN (Reason: nausea and vomiting) Qty: 7 0RF Rx Instructions: Waiting for p/u at pharmacy. clonazepam 0.5 mg tablet 0.5 mg PO TID PRN (Reason: Anxiety) Rx Instructions: Last filled 04/21/22 #90. Patient stated she uses sparingly. norethindrone ac-eth estradiol [ (21)] 1.5-30 mg-mcg tablet 1 tab PO DAILY Changed fluoxetine 20 mg tablet 20 mg PO DAILY Qty: 14 0RF Discontinued olanzapine 10 mg tablet 10 mg PO BEDTIME Qty: 30 0RF Patient Comments: Has not taken in 2 weeks d/t N/V. Stand Alone Forms: Patient Portal Discharge page
--- NOTE | 2023-03-15 10:37 | HO.PHPPROGNO ---
Subjective Subjective Date of Service: 03/15/23 Reason For Visit: MDD Interim History: Patient seen for follow-up. Continues on lurasidone 20 mg qPM and fluoxetine 20 mg qd. Has been compliant with medications, denies any side effects. She reports not feeling any better. Mood is still depressed with passive SI most everyday, last night though she admits had active suicidal ideation and thought of ways of ending her life. She contemplated taking all my medications at once . She lives alone, so did not talk to anyone about this plan. She ultimately decided to smoke weed and go to sleep. Upon inquiry she admits that she has stockpiled clonazepam for months as she only occasionally uses them for anxiety and has been able to maintain about 2 full bottles worth. (Per [facility] she had a #90 script filled in 04/2022). Clarissa was agreeable with calling her mother so mom could be involved in our discussion about safety planning. Mom was agreeable to holding on to her medications bottles and Clarissa will hold on to a couple tablets (#4) of clonazepam to take as needed for anxiety. Currently Clarissa endorses passive SI, however more intrusive thoughts of suicide often come and go throughout the day. She is agreeable to bumping up the dose of her medications, and she has enough medication currently to do so without running out for the next couple of days. Medication Compliance: Yes Side effects from medications: No Attending Groups: Yes Mental Status Exam Mental Status Exam Narrative: Alert, oriented, in no acute distress. Casually dressed. Groomed. Calm, cooperative, forthcoming. Maintains appropriate eye contact. Mood depressed. Affect constricted.? Speech is normal, regular rate, rhythm, prosody. No latency or pressured speech. Thought process linear, coherent. Thought content relevant to stressors, endorses SI with plan, denies current intention. Denies HI on inquiry. No paranoid or delusional content elicited. No evidence of psychosis. Cognition grossly intact. Sensorium clear. Insight fair. Judgment fair. Diagnostics Vital Signs (24Hr): BMI result Body Mass Index 20.2 Assessment & Plan Assessment & Plan (1) Major depressive disorder, recurrent severe without psychotic features: Status: Acute Code(s): F33.2 - Major depressive disorder, recurrent severe without psychotic features (2) Complex posttraumatic stress disorder: Status: Acute Code(s): F43.10 - Post-traumatic stress disorder, unspecified (3) Obsessive neurosis: Status: Acute Code(s): F42.8 - Other obsessive-compulsive disorder (4) Eating disorder: Qualifiers: Eating disorder type: unspecified eating disorder Qualified Code(s): F50.9 - Eating disorder, unspecified Status: Acute Code(s): F50.9 - Eating disorder, unspecified (5) Cannabis abuse: Status: Acute Code(s): F12.10 - Cannabis abuse, uncomplicated Plan increase Latuda to 40 mg qd increase fluoxetine to 40 mg qAM nicotine patch continue to closely monitor Patient educated on: diagnosis, medication risk/benefits and substance abuse Informed Consent: understands Reason for contiued partial hosp. stay Substantial Risk for: harm to self, rapid decompensation and med/psych decompensation Certification I certify that partial hospital treatment is medically necessary due to the symptoms and problems resulting from the patient's mental illness and the failure to treat the patient at the partial hospital level of care would likely result in the patient requiring inpatient psychiatric care which could not be prevented at a less intensive level of care. Total time managing care of this patient today __30__ minutes. Discharge Plan Discharge Attending provider: Amber Benjamin Medications: New lurasidone 20 mg tablet 20 mg PO QPM Qty: 14 0RF Rx Instructions: must administer with food (at least 350 calories) Continued ondansetron 4 mg tablet,disintegrating 4 mg PO Q8H PRN (Reason: nausea and vomiting) Qty: 7 0RF Rx Instructions: Waiting for p/u at pharmacy. clonazepam 0.5 mg tablet 0.5 mg PO TID PRN (Reason: Anxiety) Rx Instructions: Last filled 04/21/22 #90. Patient stated she uses sparingly. norethindrone ac-eth estradiol [ (21)] 1.5-30 mg-mcg tablet 1 tab PO DAILY Changed fluoxetine 20 mg tablet 20 mg PO DAILY Qty: 14 0RF Discontinued olanzapine 10 mg tablet 10 mg PO BEDTIME Qty: 30 0RF Patient Comments: Has not taken in 2 weeks d/t N/V. Stand Alone Forms: Patient Portal Discharge page Patient Education: Depression (DC)
--- NOTE | 2023-03-17 16:02 | HO.PHP ---
[facility] staff member followed up with Clarissa after the third group since she did not disclose if she has a plan. [facility] staff assessed if she has a plan. Clarissa disclosed that is the same plan she has always had. [facility] staff expressed that she knows that Dr. Benjamin contracted for safety with her mother and her last week around removing the medication that she is stock piling and explored if her mother has removed the medication. Clarissa disclosed not at this time. [facility] staff member asked if there is a plan for her mother to pick the medication up. Clarissa reported probably tomorrow. Clarissa reiterated that she has no intent to act on her plan and is safe. [facility] staff member was receptive.
--- NOTE | 2023-03-18 10:39 | HO.PHP ---
[facility] staff member followed up with Clarissa due to her leaving program. Clarissa informed the clinician that she is having stomach pains, in which she thought it was her appendix last night or gas. Clarissa menitoned last night she took medication for gas but is still having pains and is going to go to Urgent Care since she has to work tonight. [facility] staff member was receptive and explored SI,plan or intent. Clarissa continues to report SI with a plan and without intent. [facility] staff assessed if she was able to speak with her mother around picking up the medication so she has no means to her plan. Clarissa noted that her mother will be coming over today to pick it up. [facility] staff member was receptive. Clarissa noted she is safe and will be here on Tuesday.
--- NOTE | 2023-03-18 16:35 | PM.EVENT ---
Event Note Date of Service: 03/18/23 Event Note: Patient was scheduled for follow up with this provider today however she left unexpectedly after the first group this AM. PHP staff will be giving her a call to check in. Time Spent With Patient Time: Total time managing care of this patient today ____ minutes.
--- NOTE | 2023-03-21 15:01 | HO.PHP ---
Pt completed her PHQ-9 upon discharge meeting. Pt's score decreased slightly from 19 to 15, but still scored in the 'moderate to severe' range for depression so pt assessed to determine safety and if she would consider staying longer at [facility]. Pt reported continued SI without a plan, identified her SI as long-term and chronic struggle, identified recent SI as reduced from daily to several days a week, and reduced from 'SI with a plan most days' to 'SI without a plan', an improvement over past 2 weeks. Pt reported she continued to feel 'the same symptoms' of depression that she had when she began at [facility] on 03/02 particularly loneliness, apathy, feeling down and unmotivated, with a slight decrease in frequency and an increase in activity and increase in tryig to use coping skills e.g. outdoor walks, more use of grounding techniques, working on maintaining a daily routine. Pt also reported an increase in use of her supports over past 2 weeks, e.g has included her mother in her safety plan to help pt remain safe and store meds, spending less time alone, increased plans with friends to weekly. Stated she did not feel staying at [facility] longer would help with her depression symptoms so would prefer to discharge today, stating she will reenroll at [facility] or go to the emergency room or call crisis if she felt the severity of her symptoms increasing. Pt reported to mortgage underwriter that she discussed with DR. Benjamin additional medications she could start if she did agree to stay at [facility] longer, pt stated she may be open to additional medications but stated she would prefer to start the medications with her outpatient provider. Pt and mortgage underwriter together called her med provider, and made an appt for at 10:30 am with Vannesa BASHIR. Pt reported as safe to discharge. Pt has a therapy appt scheduled for tomorrow at 11 am with Anitha Turk, .
--- NOTE | 2023-03-21 20:59 | P.PNPSP_ITS ---
Subjective Subjective Date of Service: 03/21/23 Reason For Visit: MDD Interim History: Continues with depressed mood, although reports modest improvement, with not crying all the time and decrease in passive SI, is less an issue now that her mother removed her Klonopin bottles from her apartment on Tuesday. She reports the full plan had been to overdose on her medication and then cut her wrists, noting that she would not be capable of cutting her own wrists deep enough. She also notes that she did not want to share the full plan because it was her back-up option, but now she feels it is no longer an option. Passive SI last week was at a 5 out 10 in intensity, and now is a little better, at a 3 out of 10. She continues to hold onto her other medications and 7 tablets of Klonopin. She has maintained fluoxetine at 30 mg qd, and Latuda at 40 mg qd with food. She was encouraged to take meds with an adequate meal in order to optimize bioavailability of the Latuda. We discuss starting lithium as augmentation for depression and target chronic SI, however patient is ambivalent about staying any longer at the program; supposes she could benefit from continued structure in her day, however she doesn't feel she will gain much more for staying any longer. I kind of feel like this hasn't helped much . On a positive note, her mother submitted her application for ED residential treatment program in [place]. She is hoping to hear from them soon. In the meantime after she will be taking a leave from work. She feels she has already called out twice for mental health reasons from work due to conflicts with [facility]. She has never been to respite, she has not been to a DBT program, although her therapist engages in a mix of therapeutic strategies including CBT, DBT, psychodynamica psychotherapy. Presently she endorses ongoing depressed mood, she is well groomed and dressed. She has events and plan coming up that she is eager about . SHe endorse thoughts of not wanting to be here but no active SI, no intention or plan. Mom is in regular contact with Clarissa, we spoke last week, she has not voiced any safety concerns. Patient reports feeling stable for discharge from [facility] at this time. Mental Status Exam Mental Status Exam Narrative: Alert, oriented, in no acute distress. Casually dressed. Well-groomed. Calm, cooperative, forthcoming. Maintains appropriate eye contact. Mood depressed. Affect constricted.? Speech is normal, regular rate, rhythm, prosody. No latency or pressured speech. Thought process linear, coherent. Thought content relevant to stressors, endorses passive SI without intention, urge or plan. Denies any thoughts of harming herself or others. Denies HI on inquiry. No paranoid or delusional content elicited. No evidence of psychosis. Cognition grossly intact. Sensorium clear. Insight fair. Judgment fair. Diagnostics Vital Signs (24Hr): BMI result Body Mass Index 20.2 Assessment & Plan Assessment & Plan (1) Major depressive disorder, recurrent severe without psychotic features: Status: Acute Code(s): F33.2 - Major depressive disorder, recurrent severe without psychotic features Assessment and Plan: r/o Dysthmic Disorder (2) Complex posttraumatic stress disorder: Status: Acute Code(s): F43.10 - Post-traumatic stress disorder, unspecified (3) Obsessive neurosis: Status: Acute Code(s): F42.8 - Other obsessive-compulsive disorder (4) Eating disorder: Qualifiers: Eating disorder type: unspecified eating disorder Qualified Code(s): F50.9 - Eating disorder, unspecified Status: Acute Code(s): F50.9 - Eating disorder, unspecified (5) Cannabis abuse: Status: Acute Code(s): F12.10 - Cannabis abuse, uncomplicated Assessment and Plan: Discharge Diagnosis: Dysthymic Disorder vs MDD, recurrent, severe without psych features cPTSD vs Unstable personality development/ Borderline Personality Disorder ED vs Anorexia Nervosa OC spectrum Cannabis Abuse Plan Discharge from [facility] continue Latuda 40 mg qd in evening with meal continue fluoxetine at 30 mg qAM will defer further medication management to outpatient providers Patient educated on: diagnosis, medication risk/benefits and substance abuse Informed Consent: understands Reason for contiued partial hosp. stay Substantial Risk for: inability to function and med/psych decompensation Certification I certify that partial hospital treatment is medically necessary due to the symptoms and problems resulting from the patient's mental illness and the failure to treat the patient at the partial hospital level of care would likely result in the patient requiring inpatient psychiatric care which could not be prevented at a less intensive level of care. Total time managing care of this patient today __30__ minutes. Discharge Plan Discharge Attending provider: Patenaude,Amebr Medications: New lurasidone 40 mg tablet 40 mg PO DAILY Qty: 7 0RF Rx Instructions: must administer with food (at least 350 calories) Continued ondansetron 4 mg tablet,disintegrating 4 mg PO Q8H PRN (Reason: nausea and vomiting) Qty: 7 0RF Rx Instructions: Waiting for p/u at pharmacy. clonazepam 0.5 mg tablet 0.5 mg PO TID PRN (Reason: Anxiety) Rx Instructions: Last filled 04/21/22 #90. Patient stated she uses sparingly. norethindrone ac-eth estradiol [ (21)] 1.5-30 mg-mcg tablet 1 tab PO DAILY Changed fluoxetine 20 mg tablet See Rx Instructions .ROUTE .COMPLEX 10 Days Qty: 15 0RF Rx Instructions: take 1.5 tablets po daily in AM Discontinued olanzapine 10 mg tablet 10 mg PO BEDTIME Qty: 30 0RF Patient Comments: Has not taken in 2 weeks d/t N/V. Stand Alone Forms: Patient Portal Discharge page Patient Education: Mood Disorders (DC), Depression (DC), Post Traumatic Stress Disorder (DC) Telehealth Telehealth Location of provider rendering services: other (private office) Location of patient: other ([facility]) Patient Identification confirmed using: Name, : Yes Telehealth method: video Patient verbally consented to treatment: Yes
== END 2023-03-21 23:59 | disposition home or self-care (01) ==
LOC: HO.PHPA 09:30
PROVIDERS: Visit Provider Psychiatry & Neurology Psychiatry
DX: F33.2 Major depressive disorder, recurrent severe without psychotic features (principal); F43.10 Post-traumatic stress disorder, unspecified; F42.8 Other obsessive-compulsive disorder; F50.9 Eating disorder, unspecified; F12.10 Cannabis abuse, uncomplicated; Z79.899 Other long term (current) drug therapy
CPT/HCPCS: 90791; 90853

== ENCOUNTER 2023-04-24 07:34 | Emergency (ER) | payer OTHER, SELFPAY ==
[2023-04-24 07:35] VITALS: BP 147/84; PULSE 58; RESP 16; TEMP 36.2; O2SAT 98; BMI 19.3
[2023-04-24] MEDS: Ondansetron ODT 4 MG TAB.RAPDIS TRANSLINGU ×2 (07:42→15:28)
--- NOTE | 2023-04-24 07:59 | ED.NAVMDI ---
HPI - Nausea/Vomiting/Diarrhea General Chief complaint: Nausea/Vomiting/Diarrhea Stated complaint: Nausea, vomiting, congestion Time Seen by Provider: 04/24/23 07:40 Source: patient Mode of arrival: ambulatory Limitations: no limitations History of Present Illness HPI Narrative: This is a 22 years old female presented to the emergency department complaining of nausea and vomiting. Denies any abdominal pain any diarrhea. She has a history of underlying eating disorder, anxiety disorder, she also consume alcohol last time was last night. She has been seen in this emergency department before for vomiting. MD elicited complaint: nausea and vomiting Pertinent past history: anorexia Onset (ago): day(s) (1) Description of vomiting: watery Associated nausea: Yes Associated abdominal pain: No Associated symptoms: denies other symptoms Related Data Home Medications Medication Instructions Recorded Confirmed clonazepam 0.5 mg tablet 0.5 mg PO TID PRN Anxiety 03/02/23 03/02/23 norethindrone acetate 1.5 1 tab PO DAILY 03/02/23 03/02/23 mg-ethinyl estradiol 30 mcg tablet (June) Previous Rx's Medication Instructions Recorded ondansetron 4 mg disintegrating 4 mg PO Q8H PRN nausea and 03/26/22 tablet vomiting #7 tabs lurasidone 40 mg tablet 40 mg PO DAILY #7 tabs 03/18/23 fluoxetine 20 mg tablet See Rx Instructions .Route 03/21/23 .COMPLEX 10 days #15 tabs Allergies Allergy/AdvReac Type Severity Reaction Status Date / Time No Known Allergies Allergy Verified 04/24/23 07:40 [No Known Allergies*] Review of Systems Constitutional: Constitutional: Reports anorexia Cardiovascular: Cardiovascular: Reports no additional cardiovascular complaints Gastrointestinal: Gastrointestinal: Reports nausea and Reports vomiting Musculoskeletal: Musculoskeletal: Reports no additional musculoskeletal complaints Neurologic: Reports Abnormal speech present [facility] Past Medical History Attestation statement: The following information was validated with the patient. [facility] Narrative: anorexia Source: old records reviewed Onset Date is defined in the Problem List Problems that require an onset date and time if occurred within 24 hrs of arrival to the ED Aortic Dissection and Rupture; Neurologic impairment; Cardiopulmonary Arrest; Endotracheal Intubation; Insertion or Replacement of Mechanical Circulatory Assist Device Medical History Anorexia Anxiety Depression Social History Social History Household Members: Other Household Members Other:: My dog Alcohol intake: never Patient Tobacco Use Status: Current everyday Tobacco user Tobacco use type: Smokeless Tobacco Smoked in Last 30 Days: No Substance Use Type: Marijuana Advance Directives: No Advance Directives Information Provided: No Physical Exam Vital Signs: Vital Signs: Last Vital Signs Temp 97.2 F 04/24/23 07:35 Pulse 63 04/24/23 13:47 Resp 12 04/24/23 13:47 BP 107/43 L 04/24/23 13:47 Pulse Ox 98 04/24/23 13:47 O2 Del Method Room Air 04/24/23 13:47 BMI result Body Mass Index 19.3 Const: General: cooperative Orientation/consciousness: patient oriented x3 Limitations: no limitations HEENT: Head: Yes normal to inspection General nose exam: Normal external nose present Face and sinus: Yes normal facial exam Mouth: Normal oral and palatal mucosa present Throat: Yes posterior oropharynx normal Neck: Neck: Yes normal visual inspection Thyroid: Thyroid normal Chest: Chest palpation & inspection: normal inspection of the chest Resp: Effort & Inspection: normal respiratory effort Auscultation: clear to auscultation bilaterally Cardio: Jugular venous distension: no JVD Rate: regular rate Rhythm: regular rhythm GI: Inspection: Yes normal to inspection Palpation (GI): Soft to palpation, not firm, nontender and no guarding Percussion: Yes normal to percussion : General: Yes no CVA tenderness Back/Spine/Pelvis: Back: no CVA tenderness Skin: General skin exam: no rashes or lesions noted and elasticity normal Lesions: no lesions Rashes: no rashes Trauma: no lacerations or abrasions Neuro: General: patient oriented x3 Cranial nerves: Yes CN's II-XII intact bilaterally Speech: Abnormal speech present Motor exam (neuro): 5/5 motor strength present throughout Course Reevaluation(s) Reevaluation #1: Still vomiting will try droperidol Time: 09:26 Reevaluation #2: Feels better asymptomatic at this time Medications Administered Discontinued Medications Generic Name Dose Route Start Last Admin Trade Name Freq PRN Reason Stop Dose Admin Diphenhydramine HCl 25 mg 04/24/23 08:59 04/24/23 09:20 Diphenhydramine Hcl 50 Mg/Ml Vial IVPUSH 04/24/23 09:00 25 mg ONCE ONE Administration Droperidol 1.25 mg 04/24/23 08:59 04/24/23 09:20 Droperidol 5 Mg/2 Ml Vial IVPUSH 04/24/23 09:00 1.25 mg ONCE ONE Administration Sodium Chloride 1,000 mls @ 999 mls/hr 04/24/23 08:00 04/24/23 09:10 Ns IVCONT 04/24/23 09:00 Infused .Q1H1M [facility]NE Infusion Sodium Chloride 1,000 mls @ 999 mls/hr 04/24/23 08:30 04/24/23 10:00 Ns IVCONT 04/24/23 09:30 Infused .Q1H1M LYNNE Infusion Lorazepam 1 mg 04/24/23 07:57 04/24/23 08:11 Lorazepam 2 Mg/Ml Vial IVPUSH 04/24/23 07:58 1 mg ONCE ONE Administration Ondansetron HCl 4 mg 04/24/23 07:41 04/24/23 07:42 Ondansetron Odt 4 Mg Tab.Rapdis TRANSLINGU 04/24/23 07:42 4 mg ONCE ONE Administration Ondansetron HCl 4 mg 04/24/23 07:57 04/24/23 08:10 Ondansetron Hcl 4 Mg/2 Ml Vial IVPUSH 04/24/23 07:58 4 mg ONCE ONE Administration Oxycodone HCl 5 mg 04/24/23 14:27 04/24/23 14:57 Oxycodone Hcl Immed Release 5 Mg Tablet PO 04/24/23 14:28 Not Given ONCE ONE Medical Decision Making Medical Decision Making [facility] Narrative: Patient presented with nausea vomiting most likely a combination cannabinoids use alcohol use and eating disorder. Electrolytes within normal limit anion gap is normal patient was observed in the emergency room for several hours re-examined at 15:00 she is tolerating p.o. well she has no vomiting for about 4 hours I think it is reasonable at this point to discharge the patient home. Her vital signs stable she has not tachycardic she is afebrile and no toxic. Patient is very comfortable with the plan of care anticipate discharge Differential Diagnosis Differential Diagnoses: The differential diagnosis associated with the presentation includes Dehydration/acute renal failure//alcohol withdrawal Admission/Observation Consideration of admission/observation: Escalation of care including admission/observation considered Lab Data [facility] Lab Attestation statement: I reviewed the patient's lab results. 04/24/23 08:04 04/24/23 08:04 Labs: Lab Results 04/24/23 04/24/23 Range/Units 08:04 13:50 WBC 9.0 (4.8-10.8) X10*3/uL RBC 4.49 (4.20-5.50) X10*6/uL Hgb 12.8 (12.0-16.0) g/dl Hct 37.9 (37.0-47.0) % MCV 84.4 (80.0-98.0) fL MCH 28.5 (27.0-33.0) pg MCHC 33.8 (31.0-35.0) g/dl RDW 13.0 (11.0-16.0) % Plt Count 303 (160-400) X10*3/uL MPV 11.5 (9.4-12.3) fL Immature Gran % (Auto) 0.4 (0.0-0.4) % Neut % (Auto) 83.9 H (45-73) % Lymph % (Auto) 11.4 L (20-40) % [place] % (Auto) 4.1 (2-11) % Eos % (Auto) 0.0 (0-4) % Baso % (Auto) 0.2 (0-2) % Lymph # (Auto) 1.0 L (1.2-4.9) X10*3/uL [place] # (Auto) 0.4 (0.1-1.2) X10*3/uL Eos # (Auto) 0.0 (0.0-0.4) X10*3/uL Baso # (Auto) 0.0 (0.0-0.2) X10*3/uL Abs Immat Gran (auto) 0.04 H (0.00-0.03) X10*3/uL Absolute Neuts (auto) 7.5 (2.0-8.3) x10*3/uL Absolute Nucleated RBC 0.000 (0.0-0.012) X10*3/uL Nucleated RBC % (auto) 0.0 (0.0-0.2) /100WBC Sodium 141 (135-145) mmol/L Potassium 3.8 (3.3-5.1) mmol/L Chloride 108 (96-108) mmol/L Carbon Dioxide 18 L (22-29) mmol/L Anion Gap 19 (12-20) BUN 6 L (9-16) mg/dL Creatinine 0.77 (0.5-1.4) mg/dL Estim Creat Clear Calc 90.9 Estimated GFR > 60 Random Glucose 165 H (60-115) mg/dL Calcium 9.5 (8.4-10.2) mg/dL Total Bilirubin 0.3 (0.0-1.0) mg/dL AST 25 (5-31) U/L ALT 16 (0-31) U/L Alkaline Phosphatase 51 (39-117) U/L Total Protein 8.2 H (6.5-8.0) g/dL Albumin 4.5 (3.5-5.0) g/dL Lipase 13 (8-78) U/L Beta HCG, Quant < 2 mIU/mL Urine Color Yellow Urine Appearance Clear Urine pH 6.5 (5.0-9.0) Ur Specific Shiro 1.015 (1.005-1.025) Urine Protein Negative (Neg-Trace) mg/dL Urine Glucose (UA) 100 H (Negative) mg/dL Urine Ketones 15 (Negative) mg/dL Urine Blood Negative (Negative) Urine Nitrite Positive H (Negative) Ur Leukocyte Esterase Negative (Negative) Urine RBC 0-2 (0-2) /HPF Urine WBC 0-5 (0-5) /HPF Ur Squamous Epith Cells 0-2 (0-2) /HPF Urine Bacteria 4+ (None Seen) Hyaline Casts 0-2 (0-2) /LPF Ethyl Alcohol 21 mg/dL Independent Historian Clinical information obtained from an independent historian. History obtained from or confirmed by: Other (Friends) Discharge Plan Discharge Clinical Impression: Vomiting Patient Disposition: Home, Self-Care Instructions: Acute Nausea and Vomiting (ED) Additional Instructions: Clear liquid diet today follow-up with orthopedist return if you worse Prescriptions: No Action ondansetron 4 mg tablet,disintegrating 4 mg PO Q8H PRN (Reason: nausea and vomiting) Qty: 7 0RF Rx Instructions: Waiting for p/u at pharmacy. clonazepam 0.5 mg tablet 0.5 mg PO TID PRN (Reason: Anxiety) Rx Instructions: Last filled 04/21/22 #90. Patient stated she uses sparingly. norethindrone ac-eth estradiol [ ()] 1.5-30 mg-mcg tablet 1 tab PO DAILY lurasidone 40 mg tablet 40 mg PO DAILY Qty: 7 0RF Rx Instructions: must administer with food (at least 350 calories) fluoxetine 20 mg tablet See Rx Instructions .ROUTE .COMPLEX 10 Days Qty: 15 0RF Rx Instructions: take 1.5 tablets po daily in AM Referrals: Any Perez MD [Primary Care Provider] - 1 day
[2023-04-24 08:08] LABS: MANUAL DIFF FLAG NO
[2023-04-24] MEDS: 0.9 % Sodium Chloride 1,000 ML 999 ML IVCONT ×2 (08:09→08:56)
[2023-04-24] MEDS: ondansetron HCL 4 MG/2 ML VIAL IVPUSH (08:10)
[2023-04-24] MEDS: LORazepam 2 MG/ML VIAL 1 MG IVPUSH (08:11)
[2023-04-24 08:16] LABS: Basophils Percent Auto 0.2 % (0-2); Hematocrit 37.9 % (37.0-47.0); Hemoglobin 12.8 g/dl (12.0-16.0); Imm Gran Abs Auto 0.04 X10*3/uL (0.00-0.03); Imm Gran Pct Auto 0.4 % (0.0-0.4); Lymphocytes Percent Auto 11.4 % (20-40); Mean Corpuscular HGB Conc 33.8 g/dl (31.0-35.0); Mean Corpuscular Hemoglobin 28.5 pg (27.0-33.0); Mean Corpuscular Volume 84.4 fL (80.0-98.0); Mean Platelet Volume 11.5 fL (9.4-12.3); Monocytes Absolute Auto 0.4 X10*3/uL (0.1-1.2); Monocytes Percent Auto 4.1 % (2-11); Neutrophils Absolute Auto 7.5 x10*3/uL (2.0-8.3); Neutrophils Percent Auto 83.9 % (45-73); Platelet Count 303 X10*3/uL (160-400); Red Blood Count 4.49 X10*6/uL (4.20-5.50)
[2023-04-24 08:27] LABS: Alanine Aminotransferase 16 U/L (0-31); Albumin Level 4.5 g/dL (3.5-5.0); Alkaline Phosphatase 51 U/L (39-117); Anion Gap 19 (12-20); Aspartate Amino Transferase 25 U/L (5-31); Bilirubin Total 0.3 mg/dL (0.0-1.0); Blood Urea Nitrogen 6 mg/dL (9-16); Calcium 9.5 mg/dL (8.4-10.2); Carbon Dioxide 18 mmol/L (22-29); Chloride 108 mmol/L (96-108); Creatinine Clr Calc Pharmacy 90.9; Estimated Glomerular Filt Rate > 60; Ethanol 21 mg/dL; Glucose Random 165 mg/dL (60-115); Lipase 13 U/L (8-78); Potassium 3.8 mmol/L (3.3-5.1); Sodium 141 mmol/L (135-145); Total Protein 8.2 g/dL (6.5-8.0)
[2023-04-24 08:32] LABS: HCG Quantitative < 2 mIU/mL
--- NOTE | 2023-04-24 08:46 | PC.NURSE ---
pt a&o x4, calm, and cooperative. 20G IV placed to Left Forearm. fluids running and pt medicated per jun. pt sts she started vomiting this AM around 0100 and has also had diarrhea. pt still actively vomiting what appears to be water. warm blanket given. 2 friends at bedside. call [facility] within pt reach. rr even/unlabored. plan of care ongoing.
[2023-04-24 08:57] VITALS: BP 123/78; PULSE 71; RESP 20; O2SAT 100
[2023-04-24] MEDS: diphenhydrAMINE HCL 50 MG/ML VIAL 25 MG IVPUSH (09:20)
[2023-04-24] MEDS: droPERidol 5 MG/2 ML VIAL 1.25 MG IVPUSH (09:20)
--- NOTE | 2023-04-24 09:55 | PC.NURSE ---
pt ambulated to bathroom to attempt to give UA sample. sample was contaminated with stool. will attempt again when pt has to void. pt medicated per mar and placed back on bedside monitor. blanket given. call [facility] within reach. plan of care ongoing.
--- NOTE | 2023-04-24 12:18 | PC.NURSE ---
pt sleeping, nausea finally subsided. rr even/unlabored. call [facility] within pt reach. plan to let pt sleep, when wake up, see how pt feels and possibly discharge per Dr. Thao.
[2023-04-24 13:47] VITALS: BP 107/43; PULSE 63; RESP 12; O2SAT 98
[2023-04-24 13:56] LABS: Appearance Urine Clear; Color Urine Yellow; Glucose Urine UA 100 mg/dL (Negative); Leukocyte Esterase Urine Negative (Negative); Nitrite Urine Positive (Negative); PH 6.5 (5.0-9.0); Specific Gravity - Urine 1.015 (1.005-1.025); UMIC TRIGGER UACC YES; Urine Blood Negative (Negative); Urine Ketones 15 mg/dL (Negative); Urine Protein Negative (Neg-Trace)
[2023-04-24 14:01] LABS: Bacteria Urine 4+ (None Seen); Hyaline Casts Urine 0-2 /LPF (0-2); RBC Urine 0-2 /HPF (0-2); Squamous Epithelial Cell Urine 0-2 /HPF (0-2); UACC Culture Trigger YES; WBC Urine 0-5 /HPF (0-5)
[2023-04-24] MEDS: LORazepam 1 MG TABLET PO (15:27)
[2023-04-24 15:31] VITALS: BP 100/46; PULSE 68; RESP 16; O2SAT 96
--- NOTE | 2023-04-24 15:34 | PC.NURSE ---
pt tolerated PO challenge well and appears much better when first arrived. no vomiting since pt has been sleeping and woke up. pt feeling well enough to be discharged.
== END 2023-04-24 15:43 | disposition home or self-care (01) ==
PROVIDERS: Emergency Provider Emergency Medicine; PCP Family Medicine
DX: R11.2 Nausea with vomiting, unspecified (principal); F17.290 Nicotine dependence, other tobacco product, uncomplicated; F10.129 Alcohol abuse with intoxication, unspecified; Y90.1 Blood alcohol level of 20-39 mg/100 ml; Z79.899 Other long term (current) drug therapy
CPT/HCPCS: 36415; 80053; 80307; 81001; 83690; 84702; 85025; 87086; 87088; 87186; 96361; 96374; 96375; 99284; J1200; J1790; J2060; J2405

== ENCOUNTER 2023-12-10 08:01 | Emergency (ER) | payer OTHER, SELFPAY ==
--- NOTE | 2023-12-10 | ECG_ITS ---
Test Reason : VOMITTING Blood Pressure : / mmHG Vent. Rate : 076 BPM Atrial Rate : 076 BPM P-R Int : 152 ms QRS Dur : 078 ms QT Int : 376 ms P-R-T Axes : 064 095 032 degrees QTc Int : 423 ms Normal sinus rhythm with sinus arrhythmia Rightward axis Borderline ECG When compared with ECG of 05-MAR-2022 07:21, T wave inversion now evident in Inferior leads Referred By: Generic ED Physician Electronically Signed By:GEMA JEFFERSON
[2023-12-10 08:03] VITALS: BP 139/97; PULSE 85; RESP 16; TEMP 36.4; O2SAT 97; BMI 18.4
[2023-12-10 08:34] LABS: MANUAL DIFF FLAG NO
[2023-12-10] MEDS: 0.9 % Sodium Chloride 1,000 ML 999 ML IV ×2 (08:37→09:28)
[2023-12-10 08:51] LABS: Alanine Aminotransferase 15 U/L (0-31); Albumin Level 4.4 g/dL (3.5-5.0); Alkaline Phosphatase 41 U/L (39-117); Anion Gap 17 (12-20); Aspartate Amino Transferase 17 U/L (5-31); Bilirubin Total 0.5 mg/dL (0.0-1.0); Blood Urea Nitrogen 8 mg/dL (9-16); Calcium 9.9 mg/dL (8.4-10.2); Carbon Dioxide 18 mmol/L (22-29); Chloride 110 mmol/L (96-108); Creatinine Clr Calc Pharmacy 78.7; Estimated Glomerular Filt Rate > 60; Glucose Random 111 mg/dL (60-115); Potassium 3.5 mmol/L (3.3-5.1); Sodium 141 mmol/L (135-145); Total Protein 7.3 g/dL (6.5-8.0)
[2023-12-10 08:54] LABS: Basophils Absolute Auto 0.1 X10*3/uL (0.0-0.2); Basophils Percent Auto 0.6 % (0-2); Eosinophils Absolute Auto 0.1 X10*3/uL (0.0-0.4); Eosinophils Percent Auto 0.7 % (0-4); Hematocrit 38.3 % (37.0-47.0); Hemoglobin 13.4 g/dl (12.0-16.0); Imm Gran Abs Auto 0.03 X10*3/uL (0.00-0.03); Imm Gran Pct Auto 0.3 % (0.0-0.4); Lymphocytes Absolute Auto 2.2 X10*3/uL (1.2-4.9); Lymphocytes Percent Auto 25.6 % (20-40); Mean Corpuscular Hemoglobin 28.7 pg (27.0-33.0); Mean Platelet Volume 12.1 fL (9.4-12.3); Monocytes Percent Auto 11.6 % (2-11); Neutrophils Absolute Auto 5.3 x10*3/uL (2.0-8.3); Neutrophils Percent Auto 61.2 % (45-73); Platelet Count 294 X10*3/uL (160-400); Red Blood Count 4.67 X10*6/uL (4.20-5.50); White Blood Count 8.6 X10*3/uL (4.8-10.8)
--- NOTE | 2023-12-10 09:10 | ED.NAVMDI ---
HPI - Nausea/Vomiting/Diarrhea General Chief complaint: Nausea/Vomiting/Diarrhea Stated complaint: N/V Time Seen by Provider: 12/10/23 08:56 Source: patient and family (Mother, grandmother) Mode of arrival: ambulatory Limitations: no limitations History of Present Illness ED Provider: Dr. Gaetano Flores HPI Narrative: 23-year-old female with a history of anorexia, depression, complex PTSD, obsessive compulsive disorder, cyclic vomiting syndrome who presents emergency department for evaluation of nausea, vomiting abdominal pain. Patient states that she has been sick for at least 2 weeks with nonstop nausea, vomiting and diarrhea. Family states that she was recently in [place] and was in the emergency department for multiple hours being treated for similar symptoms. According to her family she has been seen by technology lead in the past and despite these evaluations patient continues to have cyclic vomiting syndrome. Patient states she has had fever, chills and sweats. She complains of abdominal pain, chest pain. She states she has had frequent episodes of loose watery diarrhea and occasionally blood in her diarrhea. Related Data Home Medications ?Medication ?Instructions ?Recorded ?Confirmed clonazepam 0.5 mg tablet 0.5 mg PO TID PRN Anxiety 03/02/23 03/02/23 norethindrone acetate 1.5 1 tab PO DAILY 03/02/23 03/02/23 mg-ethinyl estradiol 30 mcg tablet (Junel) Previous Rx's ?Medication ?Instructions ?Recorded ondansetron 4 mg disintegrating 4 mg PO Q8H PRN nausea and 03/26/22 tablet vomiting #7 tabs lurasidone 40 mg tablet 40 mg PO DAILY #7 tabs 03/18/23 fluoxetine 20 mg tablet See Rx Instructions .Route 03/21/23 .COMPLEX 10 days #15 tabs metoclopramide HCl 10 mg tablet 10 mg PO Q6H PRN nausea and 12/10/23 (Reglan) vomiting #20 tabs Allergies Allergy/AdvReac Type Severity Reaction Status Date / Time No Known Allergies Allergy Verified 12/10/23 08:11 [No Known Allergies*] Review of Systems Review of Systems: Yes all other systems are reviewed and are negative PMFSH Past Medical History Medical History Anorexia Anxiety Depression Social History Social History Household Members: Other Household Members Other:: My dog Alcohol intake: never Patient Tobacco Use Status: Current everyday Tobacco user Tobacco use type: Smokeless Tobacco Substance Use Type: Marijuana Advance Directives: No Physical Exam Vital Signs: Vital Signs: Last Vital Signs Temp 98.3 F 12/10/23 12:09 Pulse 58 12/10/23 12:09 Resp 13 12/10/23 12:09 BP 140/77 H 12/10/23 12:09 Pulse Ox 97 12/10/23 12:09 O2 Del Method Room Air 12/10/23 12:09 BMI result Body Mass Index 18.4 Vital signs revealed an elevated blood pressure of 138/97 Exam: General: Awake, alert, sitting up right on the stretcher, dry heaving, appears to be in distress secondary to her vomiting Head: Normocephalic, atraumatic Neuro: Awake, alert, oriented, normal speech Psych: Anxious, pleasant, cooperative Medications Administered Discontinued Medications Generic Name Dose Route Start Last Admin Trade Name Cara PRN Reason Stop Dose Admin Diphenhydramine HCl 50 mg 12/10/23 09:07 12/10/23 09:15 Diphenhydramine Hcl 50 Mg/Ml Vial IVPUSH 12/10/23 09:08 50 mg ONCE STA Administration Droperidol 1.25 mg 12/10/23 09:08 12/10/23 09:15 Droperidol 5 Mg/2 Ml Vial IVPUSH 12/10/23 09:09 1.25 mg ONCE ONE Administration Sodium Chloride 1,000 mls @ 999 mls/hr 12/10/23 08:30 12/10/23 09:28 Ns IV 12/10/23 09:30 Infused .Q1H1M LYNNE Infusion Lactated Ringer's 1,000 mls @ 999 mls/hr 12/10/23 09:07 12/10/23 09:25 Lr IV 12/10/23 10:07 999 mls/hr .Q1H1M STA Administration Sodium Chloride 1,000 mls @ 999 mls/hr 12/10/23 09:07 12/10/23 09:28 Ns IV 12/10/23 10:07 999 mls/hr .Q1H1M STA Administration Ketorolac Tromethamine 15 mg 12/10/23 09:07 12/10/23 09:16 Ketorolac Tromethamine 15 Mg/Ml Vial IVPUSH 12/10/23 09:08 15 mg ONCE STA Administration Lorazepam 1 mg 12/10/23 11:33 12/10/23 11:39 Lorazepam 2 Mg/Ml Vial IVPUSH 12/10/23 11:34 1 mg STAT STA Administration Metoclopramide HCl 10 mg 12/10/23 11:33 12/10/23 11:39 Metoclopramide Hcl 10 Mg/2 Ml Vial IVPUSH 12/10/23 11:34 10 mg ONCE STA Administration Medical Decision Making Medical Decision Making MDM Narrative: 23-year-old female with a history of anorexia, depression, complex PTSD, obsessive compulsive disorder, cyclic vomiting syndrome who presents emergency department for evaluation of nausea, vomiting abdominal pain and diarrhea x2 weeks, recently treated in an emergency department in [place] but continues to have symptoms. Patient states she was not been able to eat or drink for several days. Vital signs were normal. Physical examination revealed that she was in distress secondary to dry heaving and retching. Exam did reveal epigastric tenderness Differential diagnosis: ?Includes but is not limited to cyclic vomiting syndrome, cannabis hyperemesis syndrome, gastritis, peptic ulcer disease,, pancreatitis, Following evaluation was ordered: CBC, CMP, lipase, magnesium, quantitative beta-hCG, IV insert, cardiac monitoring, O2 saturation monitoring Patient was initially treated with the following: Normal saline IV x2, droperidol 1.25 mg IV, Benadryl 50 mg IV, Toradol 15 mg IV Course: 12:58 Patient's laboratory evaluation was unremarkable. Patient did get some improvement with the initial treatment above however she continued to have persistent nausea with intermittent vomiting. She was treated with Reglan 10 mg IV, Benadryl 50 mg IV and a second liter of normal saline IV. Patient appears to be resting comfortably but still has persistent nausea therefore she was given Zofran 4 mg IV. The patient will be discharged home with prescription for Reglan 10 mg with Benadryl 50 mg every 6 hours as needed for nausea and vomiting. I also told her to continue taking her Zofran as prescribed by her provider. Patient was given a work note to return to work on 12/14/2023 Admission/Observation Consideration of admission/observation: Escalation of care including admission/observation considered Lab Data [facility] Lab Attestation statement: I reviewed the patient's lab results. My interpretation patient's laboratory evaluation is as follows: CBC was normal. Chloride elevated 110, bicarb low 18. Potassium was normal at 3.5. LFTs were normal. Lipase was normal, quantitative beta-hCG was below detectable limits. 12/10/23 08:28 12/10/23 08:28 Labs: Lab Results 12/10/23 Range/Units 08:28 WBC 8.6 (4.8-10.8) X10*3/uL RBC 4.67 (4.20-5.50) X10*6/uL Hgb 13.4 (12.0-16.0) g/dl Hct 38.3 (37.0-47.0) % MCV 82.0 (80.0-98.0) fL MCH 28.7 (27.0-33.0) pg MCHC 35.0 (31.0-35.0) g/dl RDW 13.0 (11.0-16.0) % Plt Count 294 (160-400) X10*3/uL MPV 12.1 (9.4-12.3) fL Immature Gran % (Auto) 0.3 (0.0-0.4) % Neut % (Auto) 61.2 (45-73) % Lymph % (Auto) 25.6 (20-40) % [place] % (Auto) 11.6 H (2-11) % Eos % (Auto) 0.7 (0-4) % Baso % (Auto) 0.6 (0-2) % Lymph # (Auto) 2.2 (1.2-4.9) X10*3/uL [place] # (Auto) 1.0 (0.1-1.2) X10*3/uL Eos # (Auto) 0.1 (0.0-0.4) X10*3/uL Baso # (Auto) 0.1 (0.0-0.2) X10*3/uL Abs Immat Gran (auto) 0.03 (0.00-0.03) X10*3/uL Absolute Neuts (auto) 5.3 (2.0-8.3) x10*3/uL Absolute Nucleated RBC 0.000 (0.0-0.012) X10*3/uL Nucleated RBC % (auto) 0.0 (0.0-0.2) /100WBC Sodium 141 (135-145) mmol/L Potassium 3.5 (3.3-5.1) mmol/L Chloride 110 H (96-108) mmol/L Carbon Dioxide 18 L (22-29) mmol/L Anion Gap 17 (12-20) BUN 8 L (9-16) mg/dL Creatinine 0.84 (0.5-1.4) mg/dL Estim Creat Clear Calc 78.7 Estimated GFR > 60 Random Glucose 111 (60-115) mg/dL Calcium 9.9 (8.4-10.2) mg/dL Magnesium 2.0 (1.6-2.6) mg/dL Total Bilirubin 0.5 (0.0-1.0) mg/dL AST 17 (5-31) U/L ALT 15 (0-31) U/L Alkaline Phosphatase 41 (39-117) U/L Total Protein 7.3 (6.5-8.0) g/dL Albumin 4.4 (3.5-5.0) g/dL Lipase 24 (8-78) U/L Beta HCG, Quant < 2 mIU/mL Independent Historian Clinical information obtained from an independent historian. History obtained from or confirmed by: Parent Discharge Plan Discharge Clinical Impression: Cyclic vomiting syndrome Abdominal pain Qualifiers: Abdominal location: generalized Qualified Code(s): R10.84 - Generalized abdominal pain Patient Disposition: Home, Self-Care Additional Instructions: Continue taking your medications as prescribed by your provider including the Zofran (ondansetron). Reglan (metoclopramide) 10 mg, 1 pill every 6 hours as needed for nausea and vomiting Benadry (diphenhydramine) l 25 mg, 2 pills every 6 hours-take this medication when you take Reglan for nausea and vomiting After you take these medications, lie down in a dark quiet room and try to fall asleep. ?These medications will make you sleepy, do not drive or work after taking these medications. Follow-up with your doctor in 2 days. Please return to the emergency department if your symptoms get worse or if you develop any symptoms that are concerning to you. Please see the work note Prescriptions: New metoclopramide HCl [Reglan] 10 mg tablet 10 mg PO Q6H PRN (Reason: nausea and vomiting) Qty: 20 0RF No Action ondansetron 4 mg tablet,disintegrating 4 mg PO Q8H PRN (Reason: nausea and vomiting) Qty: 7 0RF Rx Instructions: Waiting for p/u at pharmacy. clonazepam 0.5 mg tablet 0.5 mg PO TID PRN (Reason: Anxiety) Rx Instructions: Last filled 04/21/22 #90. Patient stated she uses sparingly. norethindrone ac-eth estradiol [ ()] 1.5-30 mg-mcg tablet 1 tab PO DAILY lurasidone 40 mg tablet 40 mg PO DAILY Qty: 7 0RF Rx Instructions: must administer with food (at least 350 calories) fluoxetine 20 mg tablet See Rx Instructions .ROUTE .COMPLEX 10 Days Qty: 15 0RF Rx Instructions: take 1.5 tablets po daily in AM Stand Alone Forms: Work/School Release Print Language: Persian
[2023-12-10] MEDS: droPERidol 5 MG/2 ML VIAL 1.25 MG IVPUSH (09:15)
[2023-12-10] MEDS: diphenhydrAMINE HCL 50 MG/ML VIAL IVPUSH (09:15)
[2023-12-10] MEDS: Ketorolac Tromethamine 15 MG/ML VIAL IVPUSH (09:16)
[2023-12-10 09:20] LABS: Lipase 24 U/L (8-78)
[2023-12-10] MEDS: Lactated Ringers 1,000 ML 999 ML IV (09:25)
[2023-12-10 09:29] LABS: HCG Quantitative < 2 mIU/mL
[2023-12-10 10:00] VITALS: BP 128/90; PULSE 88; RESP 13; O2SAT 97
[2023-12-10] MEDS: Metoclopramide HCl 10 MG/2 ML VIAL IVPUSH (11:39)
[2023-12-10] MEDS: LORazepam 2 MG/ML VIAL 1 MG IVPUSH (11:39)
[2023-12-10 12:09] VITALS: BP 140/77; PULSE 58; RESP 13; TEMP 36.8; O2SAT 97
--- NOTE | 2023-12-10 12:34 | PC.NURSE ---
pt reports that she vomitted 5 min ago and still has nausea, md aware, nad, skin wpd, resting with eyes closed and family at bedside
[2023-12-10] MEDS: ondansetron HCL 4 MG/2 ML VIAL IVPUSH (12:59)
[2023-12-10 13:51] VITALS: BP 100/55; PULSE 78; RESP 18; TEMP 36.6; O2SAT 98
== END 2023-12-10 13:55 | disposition home or self-care (01) ==
PROVIDERS: Emergency Provider Emergency Medicine Emergency Medical Services; PCP Family Medicine
DX: R11.15 Cyclical vomiting syndrome unrelated to migraine (principal); R10.84 Generalized abdominal pain; F12.10 Cannabis abuse, uncomplicated; F17.200 Nicotine dependence, unspecified, uncomplicated
CPT/HCPCS: 36415; 80053; 83690; 83735; 84702; 85025; 93005; 96361; 96374; 96375; 99284; J1200; J1790; J1885; J2060; J2405; J2765; J7120

== ENCOUNTER 2023-12-26 08:09 | Emergency (ER) | payer OTHER, SELFPAY ==
[2023-12-26 08:12] VITALS: BP 136/99; PULSE 59; RESP 24; TEMP 36.4; O2SAT 98; BMI 19.8
[2023-12-26 08:27] LABS: MANUAL DIFF FLAG NO
[2023-12-26 08:31] VITALS: BP 142/95; PULSE 88; RESP 18; TEMP 36.6; O2SAT 96
--- NOTE | 2023-12-26 08:38 | PC.NURSE ---
20G inserted to RAC. Tolerated well. Good blood return.
[2023-12-26 08:42] LABS: Basophils Absolute Auto 0.1 X10*3/uL (0.0-0.2); Basophils Percent Auto 0.6 % (0-2); Eosinophils Absolute Auto 0.2 X10*3/uL (0.0-0.4); Eosinophils Percent Auto 2.3 % (0-4); Hematocrit 38.7 % (37.0-47.0); Hemoglobin 13.5 g/dl (12.0-16.0); Imm Gran Abs Auto 0.03 X10*3/uL (0.00-0.03); Imm Gran Pct Auto 0.4 % (0.0-0.4); Lymphocytes Absolute Auto 2.7 X10*3/uL (1.2-4.9); Lymphocytes Percent Auto 31.8 % (20-40); Mean Corpuscular HGB Conc 34.9 g/dl (31.0-35.0); Mean Corpuscular Hemoglobin 28.6 pg (27.0-33.0); Mean Platelet Volume 12.3 fL (9.4-12.3); Monocytes Percent Auto 11.6 % (2-11); Neutrophils Absolute Auto 4.5 x10*3/uL (2.0-8.3); Neutrophils Percent Auto 53.3 % (45-73); Platelet Count 238 X10*3/uL (160-400); Red Blood Count 4.72 X10*6/uL (4.20-5.50); Red Cell Distribution Width 12.7 % (11.0-16.0); White Blood Count 8.4 X10*3/uL (4.8-10.8)
[2023-12-26 08:44] LABS: Alanine Aminotransferase 12 U/L (0-31); Albumin Level 4.6 g/dL (3.5-5.0); Alkaline Phosphatase 42 U/L (39-117); Anion Gap 14 (12-20); Aspartate Amino Transferase 16 U/L (5-31); Bilirubin Total 0.8 mg/dL (0.0-1.0); Blood Urea Nitrogen 7 mg/dL (9-16); Calcium 9.8 mg/dL (8.4-10.2); Carbon Dioxide 18 mmol/L (22-29); Chloride 111 mmol/L (96-108); Creatinine Clr Calc Pharmacy 86.5; Estimated Glomerular Filt Rate > 60; Glucose Random 112 mg/dL (60-115); Lipase 18 U/L (8-78); Potassium 3.5 mmol/L (3.3-5.1); Sodium 139 mmol/L (135-145); Total Protein 7.5 g/dL (6.5-8.0)
--- NOTE | 2023-12-26 08:47 | ED_ITS ---
HPI - Nausea/Vomiting/Diarrhea General Chief complaint: Nausea/Vomiting/Diarrhea Stated complaint: vomiting Time Seen by Provider: 12/26/23 08:46 Source: patient and other (Significant other) Limitations: no limitations History of Present Illness ED Provider: Dr. Gaetano Flores HPI Narrative: 23-year-old female with a history of anorexia, depression, complex PTSD, obsessive compulsive disorder, cyclic vomiting syndrome who presents emergency department for evaluation of nausea, vomiting abdominal pain. Patient states she had a flare-up of her cyclic vomiting syndrome which started this morning and she was vomiting at least 20 times. Patient states she was having significant abdominal pain which she gets with her cyclic vomiting syndrome. She states she was not been able to eat, drink a hold down fluids. She denied fever, chills, chest pain or shortness of breath. Patient was seen by me on 12/10/2023 with similar complaints. That time she required multiple doses of antiemetics and benzodiazepines in order to improve her symptoms. She states she has been taking Reglan and Benadryl for her nausea and vomiting at home and this has helped but she was on the take it today secondary to her nausea and vomiting. Related Data Home Medications ?Medication ?Instructions ?Recorded ?Confirmed clonazepam 0.5 mg tablet 0.5 mg PO TID PRN Anxiety 03/02/23 03/02/23 norethindrone acetate 1.5 1 tab PO DAILY 03/02/23 03/02/23 mg-ethinyl estradiol 30 mcg tablet (Junel) Previous Rx's ?Medication ?Instructions ?Recorded ondansetron 4 mg disintegrating 4 mg PO Q8H PRN nausea and 03/26/22 tablet vomiting #7 tabs lurasidone 40 mg tablet 40 mg PO DAILY #7 tabs 03/18/23 fluoxetine 20 mg tablet See Rx Instructions .Route 03/21/23 .COMPLEX 10 days #15 tabs metoclopramide HCl 10 mg tablet 10 mg PO Q6H PRN nausea and 12/10/23 (Reglan) vomiting #20 tabs clonazepam 0.5 mg tablet 0.5 mg PO TID PRN anxiety #15 tabs 12/26/23 metoclopramide HCl 10 mg tablet 10 mg PO Q6H PRN nausea and 12/26/23 (Reglan) vomiting #20 tabs ondansetron 8 mg disintegrating 8 mg translingual Q8H #20 tabs 12/26/23 tablet Allergies Allergy/AdvReac Type Severity Reaction Status Date / Time No Known Allergies Allergy Verified 12/26/23 08:16 [No Known Allergies*] Review of Systems 2 Review of Systems: Yes all other systems are reviewed and are negative [facility] Past Medical History Medical History Anorexia Anxiety Depression Social History Social History Household Members: Other Household Members Other:: My dog Alcohol intake: never Patient Tobacco Use Status: Current everyday Tobacco user Tobacco use type: Smokeless Tobacco Smoked in Last 30 Days: No Use of substances other than those prescribed or required for medical reasons: Yes Substance Use Type: Marijuana Advance Directives: No Advance Directives Information Provided: Yes Do you have a plan to hurt others: No Plan Patient : No Physical Exam 2 Vital Signs: Vital Signs: Last Vital Signs Temp 97.2 F 12/26/23 17:06 Pulse 62 12/26/23 17:06 Resp 18 12/26/23 17:06 BP 112/53 L 12/26/23 17:06 Pulse Ox 97 12/26/23 17:06 O2 Del Method Room Air 12/26/23 17:06 BMI result Body Mass Index 19.8 Vital signs revealed an elevated blood pressure of 140/87 Exam: General: Patient is anxious, shaking, tearful, multiple episodes of dry heaving while I was in the room, very thin with a BMI of 19.8 Head: Normocephalic, atraumatic EENT: PERRL, Lids normal, sclera normal, conjunctiva normal, nose normal , ears normal, throat without erythema or exudates Neck: Supple, no adenopathy Lung: breath sounds symmetric, no wheezing, rales or rhonchi Chest: symmetric movement, nontender Heart: regular rate and rhythm, normal S1, S2 no murmurs or rubs Abdomen: soft, moderate epigastric tenderness, no rebound, no voluntary or involuntary guarding Back: no vertebral tenderness, no CVAT Extremities: no deformities, moves all extremities symmetrically Neuro: Awake, alert, oriented, normal speech, cranial nerves intact, moves all extremities symmetrically Medications Administered Discontinued Medications Generic Name Dose Route Start Last Admin Trade Name Freq PRN Reason Stop Dose Admin Diphenhydramine HCl 50 mg 12/26/23 08:50 12/26/23 08:59 Diphenhydramine Hcl 50 Mg/Ml Vial IVPUSH 12/26/23 08:51 50 mg ONCE STA Administration Diphenhydramine HCl 50 mg 12/26/23 10:47 12/26/23 10:56 Diphenhydramine Hcl 50 Mg/Ml Vial IVPUSH 12/26/23 10:48 50 mg ONCE STA Administration Droperidol 1.25 mg 12/26/23 08:50 12/26/23 09:00 Droperidol 5 Mg/2 Ml Vial IVPUSH 12/26/23 08:51 1.25 mg ONCE ONE Administration Droperidol 1.25 mg 12/26/23 11:48 12/26/23 12:03 Droperidol 5 Mg/2 Ml Vial IVPUSH 12/26/23 11:49 1.25 mg ONCE ONE Administration Sodium Chloride 1,000 mls @ 999 mls/hr 12/26/23 08:50 12/26/23 10:35 Ns IV 12/26/23 09:50 Infused .Q1H1M STA Infusion Dextrose/Sodium Chloride 1,000 mls @ 125 mls/hr 12/26/23 16:00 12/26/23 16:38 D5ns IVCONT Not Given .Q8H LYNNE Ketorolac Tromethamine 30 mg 12/26/23 08:50 12/26/23 09:01 Ketorolac Tromethamine 15 Mg/Ml Vial IVPUSH 12/26/23 08:51 30 mg ONCE STA Administration Lorazepam 1 mg 12/26/23 09:28 12/26/23 09:33 Lorazepam 2 Mg/Ml Vial IVPUSH 12/26/23 09:29 1 mg STAT STA Administration Lorazepam 1 mg 12/26/23 11:48 12/26/23 12:03 Lorazepam 2 Mg/Ml Vial IVPUSH 12/26/23 11:49 1 mg STAT STA Administration Metoclopramide HCl 10 mg 12/26/23 10:47 12/26/23 10:56 Metoclopramide Hcl 10 Mg/2 Ml Vial IVPUSH 12/26/23 10:48 10 mg ONCE STA Administration Ondansetron HCl 4 mg 12/26/23 15:50 12/26/23 16:38 Ondansetron Hcl 4 Mg/2 Ml Vial IVPUSH 12/26/23 15:51 4 mg ONCE ONE Administration Medical Decision Making Medical Decision Making [facility] Narrative: 23-year-old female with a history of anorexia, depression, complex PTSD, obsessive compulsive disorder, cyclic vomiting syndrome who presents emergency department for evaluation of nausea, vomiting abdominal pain with symptoms beginning this morning, with over 20 episodes of vomiting. Vital signs did reveal an elevated blood pressure. Exam revealed very anxious appearing woman who was shaking and dry heaving multiple times I was in the emergency department. She did have moderate epigastric tenderness otherwise exam was unremarkable. Differential diagnosis: ?Includes but is not limited to cyclic vomiting syndrome, gastritis, peptic ulcer disease, pancreatitis, electrolyte abnormalities, anemia Course: 15:59 My interpretation patient's laboratory evaluation is as follows: CBC was normal. Chloride elevated 111, bicarb low 18, BUN and creatinine were normal. Electrolytes were normal. LFTs were normal. Serum quantitative beta-hCG was below detectable limits. Lipase was normal. The patient has been in the emergency department for proximally 7.5 hours. She was treated with the following medications, Toradol 30 mg IV, Ativan 1 mg IV x2, Reglan 10 mg IV x1, Benadryl 50 mg IV x2, droperidol 1.25 mg IV x2. She also received 1 L of normal saline. Patient states that she was only had minimal improvement in her nausea. She has been able to hold down ice chips but she was not able to eat food. At this time, I do not think that the patient can be discharged home and she should be admitted for IV antiemetics and IV fluid. 16:33 The patient was seen by the hospitalist, Dr. Toth however the patient change your mind and states that she would rather try to go home on oral medications then be hospitalized. The patient will be prescribed Reglan 10 mg with 50 mg of Benadryl every 6 hours as needed for nausea and vomiting. She was also prescribed Zofran 8 mg ODT every 6 hours as needed for nausea vomiting. Patient states she was out of her clonazepam and will not be able to get into see her prescribing provider till the end of the week therefore she was prescribed clonazepam 0.5 mg TID PRN dispensed 15 tablets. Admission/Observation Consideration of admission/observation: Escalation of care including admission/observation considered (Yes) Lab Data MDM Lab Attestation statement: I reviewed the patient's lab results. 12/26/23 08:23 12/26/23 08:23 Labs: Lab Results 12/26/23 12/26/23 Range/Units 08:23 14:45 WBC 8.4 (4.8-10.8) X10*3/uL RBC 4.72 (4.20-5.50) X10*6/uL Hgb 13.5 (12.0-16.0) g/dl Hct 38.7 (37.0-47.0) % MCV 82.0 (80.0-98.0) fL MCH 28.6 (27.0-33.0) pg MCHC 34.9 (31.0-35.0) g/dl RDW 12.7 (11.0-16.0) % Plt Count 238 (160-400) X10*3/uL MPV 12.3 (9.4-12.3) fL Immature Gran % (Auto) 0.4 (0.0-0.4) % Neut % (Auto) 53.3 (45-73) % Lymph % (Auto) 31.8 (20-40) % [place] % (Auto) 11.6 H (2-11) % Eos % (Auto) 2.3 (0-4) % Baso % (Auto) 0.6 (0-2) % Lymph # (Auto) 2.7 (1.2-4.9) X10*3/uL [place] # (Auto) 1.0 (0.1-1.2) X10*3/uL Eos # (Auto) 0.2 (0.0-0.4) X10*3/uL Baso # (Auto) 0.1 (0.0-0.2) X10*3/uL Abs Immat Gran (auto) 0.03 (0.00-0.03) X10*3/uL Absolute Neuts (auto) 4.5 (2.0-8.3) x10*3/uL Absolute Nucleated RBC 0.000 (0.0-0.012) X10*3/uL Nucleated RBC % (auto) 0.0 (0.0-0.2) /100WBC Sodium 139 (135-145) mmol/L Potassium 3.5 (3.3-5.1) mmol/L Chloride 111 H (96-108) mmol/L Carbon Dioxide 18 L (22-29) mmol/L Anion Gap 14 (12-20) BUN 7 L (9-16) mg/dL Creatinine 0.82 (0.5-1.4) mg/dL Estim Creat Clear Calc 86.5 Estimated GFR > 60 Random Glucose 112 (60-115) mg/dL Calcium 9.8 (8.4-10.2) mg/dL Total Bilirubin 0.8 (0.0-1.0) mg/dL AST 16 (5-31) U/L ALT 12 (0-31) U/L Alkaline Phosphatase 42 (39-117) U/L Total Protein 7.5 (6.5-8.0) g/dL Albumin 4.6 (3.5-5.0) g/dL Lipase 18 (8-78) U/L Beta HCG, Quant < 2 mIU/mL Urine Color Yellow Urine Appearance Clear Urine pH 7.0 (5.0-9.0) Ur Specific [place] 1.025 (1.005-1.025) Urine Protein Trace (Neg-Trace) mg/dL Urine Glucose (UA) Negative (Negative) mg/dL Urine Ketones >=160 (Negative) mg/dL Urine Blood Negative (Negative) Urine Nitrite Negative (Negative) Ur Leukocyte Esterase Negative (Negative) Urine Opiates Screen Not Detected (Not Detect) Ur Buprenorphine Scrn Not Detected (Not Detect) ng/mL Ur Oxycodone Screen Not Detected (Not Detect) ng/mL Urine Methadone Screen Not Detected (Not Detect) ng/mL Urine Fentanyl Screen Not Detected (Not Detect) Ur Barbiturates Screen Not Detected (Not Detect) Ur Phencyclidine Scrn Not Detected (Not Detect) Ur Amphetamines Screen Not Detected (Not Detect) U Benzodiazepines Scrn Not Detected (Not Detect) Urine Cocaine Screen Not Detected (Not Detect) U Marijuana (THC) Screen POSITIVE H (Not Detect) Influenza Type A (PCR) NEGATIVE (Negative) Influenza Type B (PCR) NEGATIVE (Negative) RSV RNA Qual (PCR) NEGATIVE (Negative) SARS-CoV-2 RNA (RT-PCR) NEGATIVE (Negative) Independent Historian Clinical information obtained from an independent historian. History obtained from or confirmed by: Other (Significant other) Prescription Management I considered prescription management with: Other (Antiemetics, anti anxiolytics) Chronic Conditions Patient?s care impacted by: Other Discharge Plan Discharge Clinical Impression: Cyclic vomiting syndrome, Intractable vomiting with nausea, Abdominal pain Patient Disposition: Home, Self-Care Additional Instructions: Continue taking your medications as prescribed by your providers ?Take Reglan Reglan (metoclopramide) in 10 mg, 1 pill with Benadry (diphenhydramine) l 25 mg, 2 pills every 6 hours as needed for nausea and vomiting. Take Zofran 8 mg ODT, 1 pill dissolved in your mouth every 6 hours as needed for nausea and vomiting.. Take clonazepam, 0.5 mg, 1 pill every 6 hours as anxiety. You will need to get refills from your prescribing provider. Clonazepam is a benzodiazepine medication and can be addicting. If you are concerned about addiction you can ask the pharmacist for less pills or do not get this prescription filled. These medications will make you sleepy, do not drive or work while taking these medications. Follow-up with your doctor in 2 days. Please return to the emergency department if your symptoms get worse or if you develop any symptoms that are concerning to you. Prescriptions: New metoclopramide HCl [Reglan] 10 mg tablet 10 mg PO Q6H PRN (Reason: nausea and vomiting) Qty: 20 0RF ondansetron 8 mg tablet,disintegrating 8 mg translingual Q8H Qty: 20 0RF clonazepam 0.5 mg tablet 0.5 mg PO TID PRN (Reason: anxiety) Qty: 15 0RF No Action ondansetron 4 mg tablet,disintegrating 4 mg PO Q8H PRN (Reason: nausea and vomiting) Qty: 7 0RF Rx Instructions: Waiting for p/u at pharmacy. clonazepam 0.5 mg tablet 0.5 mg PO TID PRN (Reason: Anxiety) Rx Instructions: Last filled 04/21/22 #90. Patient stated she uses sparingly. norethindrone ac-eth estradiol [ (21)] 1.5-30 mg-mcg tablet 1 tab PO DAILY lurasidone 40 mg tablet 40 mg PO DAILY Qty: 7 0RF Rx Instructions: must administer with food (at least 350 calories) fluoxetine 20 mg tablet See Rx Instructions .ROUTE .COMPLEX 10 Days Qty: 15 0RF Rx Instructions: take 1.5 tablets po daily in AM metoclopramide HCl [Reglan] 10 mg tablet 10 mg PO Q6H PRN (Reason: nausea and vomiting) Qty: 20 0RF Referrals: Physician,Unknown J [Primary Care Provider] - 1 Week Interventions: ED Discharge Assessment Last Done: 12/26/23 17:06 Discharge Date/Time: 12/26/23 17:07 Print Language: Maldivian
[2023-12-26 08:52] LABS: HCG Quantitative < 2 mIU/mL
[2023-12-26] MEDS: diphenhydrAMINE HCL 50 MG/ML VIAL IVPUSH ×2 (08:59→10:56)
[2023-12-26] MEDS: droPERidol 5 MG/2 ML VIAL 1.25 MG IVPUSH ×2 (09:00→12:03)
[2023-12-26] MEDS: Ketorolac Tromethamine 15 MG/ML VIAL 30 MG IVPUSH (09:01)
[2023-12-26] MEDS: 0.9 % Sodium Chloride 1,000 ML 999 ML IV (09:02)
[2023-12-26 09:05] LABS: Influenza A PCR NEGATIVE (Negative); Influenza B PCR NEGATIVE (Negative); Resp Syncy Virus RNA Qual PCR NEGATIVE (Negative); SARS COV2 PCR INHOUSE NEGATIVE (Negative)
[2023-12-26] MEDS: LORazepam 2 MG/ML VIAL 1 MG IVPUSH ×2 (09:33→12:03)
[2023-12-26] MEDS: Metoclopramide HCl 10 MG/2 ML VIAL IVPUSH (10:56)
--- NOTE | 2023-12-26 10:56 | PC.NURSE ---
Pt. medicated per JUN.
--- NOTE | 2023-12-26 11:38 | PC.NURSE ---
Pt. refusing to provide urine sample.
[2023-12-26 14:55] LABS: Appearance Urine Clear; Color Urine Yellow; Glucose Urine UA Negative (Negative); Leukocyte Esterase Urine Negative (Negative); Nitrite Urine Negative (Negative); Specific Gravity - Urine 1.025 (1.005-1.025); Urine Blood Negative (Negative); Urine Ketones >=160 mg/dL (Negative); Urine Protein Trace mg/dL (Neg-Trace)
[2023-12-26 15:02] LABS: Amphetamine Screen Urine Not Detected (Not Detect); Barbiturates, Urine Not Detected (Not Detect); Benzodiazepines Screen Urine Not Detected (Not Detect); Buprenorphine Scr Not Detected (Not Detect); Cannabinoid Screen Urine POSITIVE (Not Detect); Cocaine Screen Urine Not Detected (Not Detect); Fentanyl, urine Not Detected (Not Detect); Methadone Screen, Urine Not Detected (Not Detect); Opiate Screen Urine Not Detected (Not Detect); Oxycodone Screen Urine Not Detected (Not Detect); Phencyclidine Screen Urine Not Detected (Not Detect)
[2023-12-26 15:06] VITALS: BP 140/87; PULSE 50; RESP 16; O2SAT 100
[2023-12-26] MEDS: ondansetron HCL 4 MG/2 ML VIAL IVPUSH (16:38)
[2023-12-26 17:06] VITALS: BP 112/53; PULSE 62; RESP 18; TEMP 36.2; O2SAT 97
== END 2023-12-26 17:07 | disposition home or self-care (01) ==
PROVIDERS: Emergency Provider Emergency Medicine Emergency Medical Services
DX: R11.15 Cyclical vomiting syndrome unrelated to migraine (principal); R10.9 Unspecified abdominal pain; R11.2 Nausea with vomiting, unspecified; Z79.899 Other long term (current) drug therapy; Z03.818 Encounter for observation for suspected exposure to other biological agents ruled out
CPT/HCPCS: 0241U; 36415; 80053; 80307; 81003; 83690; 84702; 85025; 96361; 96374; 96375; 96376; 99284; 99285; J1200; J1790; J1885; J2060; J2405; J2765